=== PATIENT | female | born 1940 | race Caucasian/White ===

== ENCOUNTER 2021-01-18 16:47 | Emergency (ER) | payer MEDICARE, OTHER, SELFPAY ==
--- NOTE | 2021-01-18 16:51 | XRR_ITS ---
PROCEDURE INFORMATION: Exam: XR Right Shoulder Exam date and time: 01/18/2021 5:22 PM Age: 80 years old Clinical indication: Injury or trauma; Fall; Blunt trauma (contusions or hematomas); Shoulder; Right; Injury date: 01/18/2021 TECHNIQUE: Imaging protocol: XR Right shoulder. Views: 2 or more views. COMPARISON: No relevant prior studies available. FINDINGS: Tubes, catheters and devices: Partial visualization of left chest ICD. Bones/joints: Impacted acute fracture of the greater tuberosity. Glenohumeral alignment is unremarkable. Acromioclavicular alignment is unremarkable. Hypertrophic osseous spurring of distal clavicle and acromion process. Cortical irregularity of inferior glenoid and inferior humeral head. Diffuse osseous demineralization. Soft tissues: Unremarkable. XR/XR shoulder RT min 2V* [id number] IMPRESSION: Acute comminuted impacted right proximal humerus greater tuberosity fracture.
[2021-01-18 16:54] VITALS: PULSE 97; RESP 20; TEMP 36.8; O2SAT 98; BMI 34.3
[2021-01-18 17:00] VITALS: BP 119/93; PULSE 93; RESP 16; O2SAT 99
--- NOTE | 2021-01-18 17:09 | W.ED.FALL ---
HPI - Fall General: Chief Complaint: Fall Stated Complaint: R SHOULDER PAIN POST FALL Time Seen by Provider: 01/18/21 17:08 History of Present Illness: HPI Narrative: Patient is an 80-year-old female comes to the ED via EMS with right shoulder pain. Patient says that just prior to arrival she was going outside of her house to grab a package. She says the glass storm door blew open and knocked her back off the front porch. Patient says she fell on her back right side of the right shoulder. She denies any head trauma, neck pain or loss of consciousness. She says all of her pain is located in the back of the right shoulder region. She rates it a 10 out of 10. She says any movement with her arm causes pain up in her shoulder. Associated symptoms-after fall: Denies abdominal pain, chest pain, headache(s), hematuria or neck pain Review of Systems Const: Denies: fever(s), chills or fatigue Eyes: Denies: change in vision or eye discomfort ENMT: Denies: throat pain, odynophagia, nasal discharge or nasal congestion Card: Denies: chest pain, palpitations, edema, swelling of feet/ankles, dyspnea on exertion or orthopnea Resp: Denies: dyspnea, productive cough or non-productive cough GI: Denies: abdominal pain, nausea, vomiting, diarrhea, constipation or hematochezia : Denies: flank pain, dysuria or hematuria Musc: Reports: extremity pain (right shoulder) and limited range of motion (right arm); Denies: neck pain, back pain or extremity swelling Skin/Breast: Denies: rash or new lesions Neuro: Denies: headache(s), numbness in extremities or weakness in extremities PFSH ED PFSH: Medical History CHF (congestive heart failure) CKD (chronic kidney disease) stage 4, GFR 15-29 ml/min Coronary artery disease Diabetes mellitus HTN (hypertension) Hyperlipidemia Pacemaker Surgical History S/P hemorrhoidectomy S/P hysterectomy S/P lens implant Family History Father Cancer Colon CA Sister Cancer Breast CA Other CAD (coronary artery disease) Diabetes Gout Hypertension Social History Smoking and tobacco status: former smoker History of recent travel: No Physical Exam Const: COMMON NORMALS: no acute distress, patient oriented x3 and alert GENERAL APPEARANCE: cooperative and comfortable HENMT: COMMON NORMALS: normocephalic HEAD & SCALP: normocephalic MOUTH: Normal oral and palatal mucosa present THROAT: posterior oropharynx normal and uvula midline Neck/C-Spine: COMMON NORMALS: supple GENERAL: Yes normal visual inspection Resp: COMMON NORMALS: normal respiratory effort, No retractions, No use of accessory muscles and clear to auscultation bilaterally AUSCULTATION: clear to auscultation bilaterally Cardio: COMMON NORMALS: regular rate, regular rhythm, S1 normal heart sound present, S2 normal heart sound present, No gallops present (Cardio), No clicks present (Cardio), No murmurs present (Cardio) and Peripheral pulses 2+ throughout RATE: regular rate RHYTHM: regular rhythm HEART SOUNDS: S1 normal heart sound present and S2 normal heart sound present PERIPHERAL PULSES: Peripheral pulses 2+ throughout GI: COMMON NORMALS: Normal to inspection, nondistended, normoactive bowel sounds present, Soft to palpation, non-tender and no masses PALPATION: Yes Soft to palpation : COMMON NORMALS: Yes no CVA tenderness BLADDER/KIDNEY EXAM: Yes no CVA tenderness Back/Pelvis: COMMON NORMALS: no CVA tenderness Extremity: COMMON NORMALS: capillary refill normal GENERAL: Yes normal exam except as noted RIGHT UPPER EXTREMITY: Yes shoulder joint (Patient tender around proximal humeral head right shoulder.) Right shoulder: Yes Right shoulder joint inspection exam (No ecchymosis or visible deformity seen.), Yes palpation, Yes Right shoulder joint ROM exam (Limited due to pain) and Yes Right shoulder joint neurovascular exam (Intact) Neuro: COMMON NORMALS: patient oriented x3 and moves all extremities SENSORIUM/ORIENTATION: Yes alert Skin: GENERAL SKIN EXAM: dry skin Course Vital Signs: Vital signs: Vital Signs Temperature 98.3 F 01/18/21 16:54 Pulse Rate 93 01/18/21 17:00 Respiratory Rate 16 01/18/21 17:00 Blood Pressure 119/93 01/18/21 17:00 Pulse Oximetry 99 01/18/21 17:00 MDM - Fall MDM Narrative: Medical decision making narrative: Patient is an 80-year-old female comes to the ED with right shoulder pain after fall. Exam findings show pain at the proximal head of the humerus upon palpation. Neurovascular tact distally. X-ray of right shoulder show a comminuted impacted right proximal humerus greater tuberosity fracture. Patient was put in a shoulder immobilizer that I placed an order with case management for patient be referred to orthopedic doctor. She was told to rest and to wear shoulder immobilizer and limit any activity with her right arm. She was discharged home with a written prescription for [place]. Return to ED precautions given. I told patient that upper caser only contacting them in the next several days set up an appoint with orthopedic doctor. Patient understood agree with plan. Imaging Data^: Xray Ortho: Attestation: I personally reviewed and interpreted this imaging study as follows: Radiologist's impression: [facility] [place] [address] XRay Report Signed Patient: Ольга Hickey Unit #: [id number] : 1940 Age/Sex: 80 / F ADM Date: 01/18/21 Loc: ER Room/Bed: Attending Dr: Ordering Provider/Ordering MD: Skylar Millan Date of Service: 01/18/21 Procedure(s): XR shoulder RT min 2V* [id number] Accession Number(s): [id number] Report Number: [id number] PROCEDURE INFORMATION: Exam: XR Right Shoulder Exam date and time: 01/18/2021 5:22 PM Age: 80 years old Clinical indication: Injury or trauma; Fall; Blunt trauma (contusions or hematomas); Shoulder; Right; Injury date: 01/18/2021 TECHNIQUE: Imaging protocol: XR Right shoulder. Views: 2 or more views. COMPARISON: No relevant prior studies available. FINDINGS: Tubes, catheters and devices: Partial visualization of left chest ICD. Bones/joints: Impacted acute fracture of the greater tuberosity. Glenohumeral alignment is unremarkable. Acromioclavicular alignment is unremarkable. Hypertrophic osseous spurring of distal clavicle and acromion process. Cortical irregularity of inferior glenoid and inferior humeral head. Diffuse osseous demineralization. Soft tissues: Unremarkable. XR/XR shoulder RT min 2V* [id number] IMPRESSION: Acute comminuted impacted right proximal humerus greater tuberosity fracture. Dictated By: Tarik Ham Signed By: Tarik Ham Signed Date/Time: 01/18/211823 DD/ 22 Discharge Plan Discharge Patient Disposition: Home Clinical Impression: Fracture of greater tuberosity of right humerus Qualifiers: Encounter type: initial encounter Fracture type: closed Fracture alignment: nondisplaced Qualified Code(s): S42.254A - Nondisplaced fracture of greater tuberosity of right humerus, initial encounter for closed fracture Condition: Stable Prescriptions: No Action cholecalciferol (vitamin D3) 25 mcg (1,000 unit) capsule 1,000 unit PO DAILY@0800 RF: 0 nateglinide 120 mg tablet 120 mg PO TID@08,,20 RF: 0 levothyroxine 25 mcg capsule 25 mcg PO DAILY@0800 RF: 0 allopurinol 100 mg tablet 100 mg PO DAILY@0800 RF: 0 warfarin 1 mg tablet See Rx Instructions .ROUTE .COMPLEX RF: 0 Levemir FlexTouch U-100 Insuln 100 unit/mL (3 mL) insulin pen 30 unit SUBCUT BEDTIME@1999 RF: 0 losartan 50 mg tablet 50 mg PO DAILY@0800 RF: 0 Cartia XT 240 mg capsule,extended release 24hr 240 mg PO DAILY@0800 RF: 0 metoprolol tartrate 25 mg tablet 25 mg PO BID@0800,1999 RF: 0 fenofibrate nanocrystallized 145 mg tablet 145 mg PO DAILY@0800 RF: 0 Discharge Orders: Discharge ED (Routine); Ordered 01/18/21 Ordered By: Sravan Wright Referrals: Ángel Flores DO [Primary Care Provider] - Discharge Diet: Regular Discharge Activity: Limit activity as instructed Patient Instructions: Fractures - Humerus, Arm Fracture in Adults (ED), Opioid Safety Activity Restrictions/Additional Instructions: Follow-up with medical provider as directed. Case management should be contacting you in the next several days to set up an appointment with orthopedic doctor for further evaluation. Wear shoulder immobilizer and limit any activity with right arm. Take medications as prescribed. Return to the ER or your medical provider if condition worsens. Please read and understand discharge instructions. Thank you for choosing [facility] for your healthcare needs today. Please realize this is an emergency room and that we are providing you with a medical screening exam and this may not be complete and all inclusive of all the testing and or work up that you may need to determine your ailment or severity of your illness. It is very important that you follow up as instructed or that you return to the Emergency Department should you have concerns or if your condition changes or worsens in any way. Coding Level of Care Code ED Pharmacy Service Associate for Mirella Fwd Exam Comprehensive
[2021-01-18] MEDS: HYDROcodone-acetaminophen 5-325 mg Tablet 1 TAB PO (17:39)
--- NOTE | 2021-01-22 10:20 | DCPLANNER ---
general sales manager had message to schedule a follow up appointment for patient with ortho. general sales manager called the ortho clinic, spoke with Iona, gave clinic patients information. general sales manager was told that patients information would be printed and reviewed. Clinic will call patient with appointment information.
--- NOTE | 2021-01-24 07:50 | DCPLANNER ---
Patient had a follow up appointment scheduled for 01.23.[address] Cummings at [facility] - patient did attend appointment.
== END 2021-01-18 18:56 | disposition home or self-care (01) ==
PROVIDERS: Emergency Provider Physician Assistant; PCP Family Medicine
DX: S42.254A Nondisplaced fracture of greater tuberosity of right humerus, initial encounter for closed fracture (principal); Z79.01 Long term (current) use of anticoagulants; Z79.4 Long term (current) use of insulin; I13.0 Hypertensive heart and chronic kidney disease with heart failure and stage 1 through stage 4 chronic kidney disease, or unspecified chronic kidney disease; N18.4 Chronic kidney disease, stage 4 (severe); I50.9 Heart failure, unspecified; I25.10 Atherosclerotic heart disease of native coronary artery without angina pectoris; E78.5 Hyperlipidemia, unspecified; Z95.0 Presence of cardiac pacemaker; Z87.891 Personal history of nicotine dependence; W17.89XA Other fall from one level to another, initial encounter
CPT/HCPCS: 73030; 99283

== ENCOUNTER → 2021-02-13 13:00 | Outpatient (BNVA) | payer MEDICARE, OTHER, SELFPAY | PROVIDERS: PCP Family Medicine; Visit Provider Orthopaedic Surgery | DX: S42.254A Nondisplaced fracture of greater tuberosity of right humerus, initial encounter for closed fracture (principal); X58.XXXA Exposure to other specified factors, initial encounter | CPT/HCPCS: 73030 ==

== ENCOUNTER → 2021-03-27 08:51 | Outpatient (BNVA) | payer MEDICARE, OTHER, SELFPAY | PROVIDERS: PCP Family Medicine; Visit Provider Orthopaedic Surgery | DX: S42.254A Nondisplaced fracture of greater tuberosity of right humerus, initial encounter for closed fracture (principal); X58.XXXA Exposure to other specified factors, initial encounter | CPT/HCPCS: 73030 ==

== ENCOUNTER 2021-04-11 06:00 | Outpatient (RCR) | payer MEDICARE, OTHER, SELFPAY | END 2021-04-14 23:59 | disposition home or self-care (01) | LOC: SPT 06:00 | PROVIDERS: PCP Family Medicine; Referring Provider Orthopaedic Surgery; Visit Provider Orthopaedic Surgery | DX: S42.201D Unspecified fracture of upper end of right humerus, subsequent encounter for fracture with routine healing (principal); X58.XXXD Exposure to other specified factors, subsequent encounter | CPT/HCPCS: 97110; 97162 ==

== ENCOUNTER 2021-04-15 06:00 | Outpatient (RCR) | payer MEDICARE, OTHER, SELFPAY | END 2021-05-15 23:59 | disposition home or self-care (01) | LOC: SPT 06:00 | PROVIDERS: PCP Family Medicine; Referring Provider Orthopaedic Surgery; Visit Provider Orthopaedic Surgery | DX: S42.201D Unspecified fracture of upper end of right humerus, subsequent encounter for fracture with routine healing (principal); X58.XXXD Exposure to other specified factors, subsequent encounter | CPT/HCPCS: 97110 ==

== ENCOUNTER → 2021-05-04 10:20 | Outpatient (BNVA) | payer MEDICARE, OTHER, SELFPAY | PROVIDERS: PCP Family Medicine; Visit Provider Orthopaedic Surgery | DX: S42.251D Displaced fracture of greater tuberosity of right humerus, subsequent encounter for fracture with routine healing (principal); X58.XXXD Exposure to other specified factors, subsequent encounter | CPT/HCPCS: 73030 ==

== ENCOUNTER 2021-05-16 06:00 | Outpatient (RCR) | payer MEDICARE, OTHER, SELFPAY | END 2021-06-14 23:59 | disposition home or self-care (01) | LOC: SPT 06:00 | PROVIDERS: PCP Family Medicine; Referring Provider Orthopaedic Surgery; Visit Provider Orthopaedic Surgery | DX: S42.201D Unspecified fracture of upper end of right humerus, subsequent encounter for fracture with routine healing (principal); X58.XXXD Exposure to other specified factors, subsequent encounter | CPT/HCPCS: 97110; 97164 ==

== ENCOUNTER → 2021-11-16 11:03 | Outpatient (BNVA) | payer MEDICARE, OTHER, SELFPAY | PROVIDERS: PCP Family Medicine; Visit Provider Internal Medicine Cardiovascular Disease | DX: R07.9 Chest pain, unspecified (principal); I10 Essential (primary) hypertension; E66.01 Morbid (severe) obesity due to excess calories; Z68.44 Body mass index [BMI] 60.0-69.9, adult ==

== ENCOUNTER 2021-12-20 08:53 | Outpatient (CLI) | payer MEDICARE, OTHER, SELFPAY ==
[2021-12-20 09:37] LABS: Basophils # 0.1 10^3/uL (0.0-0.1); Basophils % 0.6 %; Eosinophils # 0.2 10^3/uL (0.0-0.8); Hematocrit 34.8 % (37.0-47.0); Hemoglobin 10.8 g/dL (11.5-15.3); Lymphocytes # 0.9 10^3/uL (0.8-4.8); Lymphocytes % 6.1 %; Mean Corpuscular Hemoglobin 30.3 pg (28.0-34.0); Mean Corpuscular Volume 97.8 fl (81-99); Mean Platelet Volume 11.2 fL (7.4-10.4); Monocytes # 1.4 10^3/uL (0.2-0.9); Monocytes % 8.8 %; Neutrophils # 12.76 10^3/uL (1.8-7.7); Nucleated Red Blood Cells % 0 %; Platelet Count 395 10^3/cmm (130-400); Red Blood Count 3.56 10^6/uL (4.1-5.3); White Blood Count 15.4 10^3/uL (4.0-10.0)
[2021-12-20 09:50] LABS: INR 2.97 (0.8-1.2)
[2021-12-20 10:00] LABS: Alanine Aminotransferase 12 U/L (0-33); Albumin Level 3.8 g/dL (3.5-5.2); Alkaline Phosphatase 74 IU/L (35-105); Anion Gap 14.8 (5-19); Aspartate Amino Transferase 16 U/L (0-32); Blood Urea Nitrogen 40 mg/dL (8-23); Calcium 9.6 mg/dL (8.5-10.5); Carbon Dioxide 24 mmol/L (22-29); Chloride 104 mmol/L (98-107); Creatine Phosphokinase 26 U/L (26-192); Globulin 2.8 g/dL (1.3-4.6); Glucose 190 mg/dL (65-115); Osmolality Calculated 301 mOsm/kg (285-295); Potassium 4.8 mmol/L (3.5-5.1); Sodium 138 mmol/L (136-145); Total Bilirubin 0.8 mg/dL (0.15-1.2); Total Protein 6.6 g/dL (6.6-8.7)
== END 2021-12-20 08:54 | disposition home or self-care (01) ==
LOC: LAB 08:59
PROVIDERS: PCP Family Medicine; Visit Provider Family Medicine
DX: Z79.01 Long term (current) use of anticoagulants (principal); N19 Unspecified kidney failure; W19.XXXA Unspecified fall, initial encounter; R58 Hemorrhage, not elsewhere classified
CPT/HCPCS: 80053; 82550; 85025; 85610

== ENCOUNTER → 2022-03-14 14:56 | Outpatient (BNVA) | payer MEDICARE, OTHER, SELFPAY | PROVIDERS: PCP Family Medicine; Visit Provider Internal Medicine Cardiovascular Disease | DX: I25.10 Atherosclerotic heart disease of native coronary artery without angina pectoris (principal); I13.0 Hypertensive heart and chronic kidney disease with heart failure and stage 1 through stage 4 chronic kidney disease, or unspecified chronic kidney disease; E11.22 Type 2 diabetes mellitus with diabetic chronic kidney disease; N18.4 Chronic kidney disease, stage 4 (severe); I50.32 Chronic diastolic (congestive) heart failure; Z99.2 Dependence on renal dialysis; Z87.891 Personal history of nicotine dependence; Z79.4 Long term (current) use of insulin; Z95.0 Presence of cardiac pacemaker | CPT/HCPCS: 99214 ==

== ENCOUNTER → 2022-03-29 10:08 | Outpatient (BNVA) | payer MEDICARE, SELFPAY | PROVIDERS: PCP Family Medicine; Visit Provider Internal Medicine Cardiovascular Disease | DX: Z45.010 Encounter for checking and testing of cardiac pacemaker pulse generator [battery] (principal) | CPT/HCPCS: 93279 ==

== ENCOUNTER → 2022-04-02 09:01 | Outpatient (BNVA) | payer MEDICARE, OTHER, SELFPAY | PROVIDERS: PCP Family Medicine; Visit Provider Family Medicine | DX: Z79.01 Long term (current) use of anticoagulants (principal); R23.3 Spontaneous ecchymoses; N18.9 Chronic kidney disease, unspecified | CPT/HCPCS: 80069; 82043; 82306; 82310; 83550; 83970; 85025; 85610 ==

== ENCOUNTER → 2022-07-09 09:37 | Outpatient (BNVA) | payer MEDICARE, OTHER, SELFPAY | PROVIDERS: PCP Family Medicine; Visit Provider Family Medicine | DX: E11.9 Type 2 diabetes mellitus without complications (principal); I10 Essential (primary) hypertension; Z79.01 Long term (current) use of anticoagulants | CPT/HCPCS: 83036; 85610 ==

== ENCOUNTER 2022-07-28 13:20 | Emergency (ER) | payer MEDICARE, OTHER, SELFPAY ==
[2022-07-28 13:50] VITALS: BP 135/83; PULSE 95; RESP 18; TEMP 36.3; O2SAT 97
--- NOTE | 2022-07-28 14:17 | XRR_ITS ---
PROCEDURE INFORMATION: Exam: XR Abdomen Exam date and time: 07/28/2022 4:35 PM Age: 81 years old Clinical indication: Abdominal pain; Additional info: Abd pain, HX of pneumonia TECHNIQUE: Imaging protocol: Radiologic exam of the abdomen. Views: 2 Views. Upright and supine views. COMPARISON: CR XR chest 1V [id number] 09/12/2015 11:56 AM FINDINGS: Tubes, catheters and devices: Pacemaker stable. Heart/Mediastinum: Cardiomegaly is stable. Gastrointestinal tract: Normal. No bowel dilation. Intraperitoneal space: Normal. No free air. Bones/joints: Unremarkable for age. XR/XR acute abdomen series [id number] IMPRESSION: No acute findings.
[2022-07-28 15:31] LABS: Basophils % 0.1 %; Hematocrit 37.5 % (37.0-47.0); Hemoglobin 11.4 g/dL (11.5-15.3); Lymphocytes # 0.8 10^3/uL (0.8-4.8); Lymphocytes % 6.8 %; Mean Corpuscular HGB Conc 30.4 g/dL (30.0-36.0); Mean Corpuscular Hemoglobin 31.3 pg (28.0-34.0); Mean Platelet Volume 9.7 fL (7.4-10.4); Monocytes # 0.3 10^3/uL (0.2-0.9); Monocytes % 2.2 %; Neutrophils # 10.56 10^3/uL (1.8-7.7); Neutrophils % 89.4 %; Nucleated Red Blood Cells % 0 %; Platelet Count 468 10^3/cmm (130-400); Red Blood Count 3.64 10^6/uL (4.1-5.3); Red Cell Distribution Width 13.4 % (12.1-15.1); White Blood Count 11.8 10^3/uL (4.0-10.0)
--- NOTE | 2022-07-28 15:36 | W.ED.GENADLT ---
HPI - General Adult General: Chief complaint: General Medical Stated complaint: SOB Time Seen by Provider: 07/28/22 14:59 Source: patient Mode of arrival: ambulatory History of Present Illness: 81-year-old female presents emergency room with complaints of shortness of breath and abdominal pain. She has been coughing for the several days she seen her primary care doctor 4 days ago and was started on Levaquin for presumed pneumonia. She is continued to cough since then and has a pain in her abdomen she describes a sensation of an severe pain with cough or deep breath in the abdominal wall to the left of the umbilicus. She has a palpable knot there as well she states she had subjectively had a fever but that has improved. She does not smoke. She has a history of diabetes mellitus, chronic kidney disease and congestive heart failure. She has no known history of any chronic respiratory illness no recent chest pain. Onset (ago): day(s) Location: abdomen Severity: moderate Quality: stabbing and sharp Pain Consistency: intermittent Exacerbating factors: movement and other (Palpation) Associated symptoms: Reports cough; Deny chest pain, confusion, diaphoresis, decreased appetite, dyspnea, fevers/chills, headache(s), malaise, nausea, rash, palpitations, seizures, short of breath, syncope, vomiting or weakness Treatments prior to arrival: none Review of Systems Const: Denies: fever(s), chills, fatigue, malaise or diaphoresis ENMT: Denies: throat pain, ear or mastoid pain, nasal discharge or nasal congestion Card: Denies: chest pain, palpitations or syncope Resp: Denies: dyspnea GI: Reports: abdominal pain; Denies: nausea, vomiting, diarrhea or constipation : Denies: flank pain, difficulty voiding, dysuria, urinary frequency or urinary urgency Musc: Denies: neck pain or back pain Skin/Breast: Denies: rash Neuro: Denies: headache(s) or confusion PFSH ED PFSH: Medical History CHF (congestive heart failure) CKD (chronic kidney disease) stage 4, GFR 15-29 ml/min Coronary artery disease Diabetes mellitus HTN (hypertension) Hyperlipidemia Pacemaker Surgical History S/P hemorrhoidectomy S/P hysterectomy S/P lens implant Family History Father Cancer Colon CA Sister Cancer Breast CA Other CAD (coronary artery disease) Diabetes Gout Hypertension Social History Smoking and tobacco status: former smoker History of recent travel: No Physical Exam Const: COMMON NORMALS: no acute distress GENERAL APPEARANCE: cooperative and comfortable ORIENTATION/CONSCIOUSNESS: Yes awake, Yes oriented to person, Yes oriented to place and Yes oriented to time HENMT: COMMON NORMALS: normocephalic, atraumatic and hearing grossly normal bilaterally HEAD & SCALP: normocephalic and atraumatic Resp: COMMON NORMALS: normal respiratory effort, No retractions, No use of accessory muscles and clear to auscultation bilaterally AUSCULTATION: clear to auscultation bilaterally Cardio: COMMON NORMALS: regular rate, regular rhythm and No murmurs present (Cardio) RATE: regular rate RHYTHM: regular rhythm GI: COMMON NORMALS: Soft to palpation and No hepatosplenomegaly present AUSCULTATION: Yes normoactive bowel sounds PALPATION: Yes Soft to palpation, No Tenderness to palpation present (GI), No Guarding due to palpation present (GI) and Yes No hepatosplenomegaly present OTHER: Ecchymosis of the abdominal wall to the right of the umbilicus. Palpable exquisitely tender nodule in that area appears to be abdominal wall hematoma. Extremity: COMMON NORMALS: normal to inspection, capillary refill normal, no clubbing, cyanosis or edema, no calf tenderness and no pedal edema Neuro: SENSORIUM/ORIENTATION: Yes oriented to person, Yes oriented to place and Yes oriented to time Skin: COMMON NORMALS: no rashes or lesions noted GENERAL SKIN EXAM: no rashes or lesions noted Course Vital Signs: Vital signs: Vital Signs Temperature 97.4 F L 07/28/22 18:43 Pulse Rate 71 07/28/22 18:43 Respiratory Rate 16 07/28/22 18:43 Blood Pressure 142/71 07/28/22 18:43 Pulse Oximetry 97 07/28/22 18:43 Oxygen Delivery Me thod 07/28/22 13:50 [facility] - General Adult Medical Decision Making Patient notes abdominal wall hematoma. Mildly over anticoagulated additionally has mild acute on chronic kidney injury. Will discharge home with hydrocodone follow-up with primary care next week return if is further problems. Medical Records I reviewed the patient's medical records. Lab Data I reviewed the patient's lab results. 07/28/22 15:20 07/28/22 15:20 Radiology Impressions Chest/Abdomen X-ray 07/28/22 14:17 IMPRESSION: No acute findings. Abdomen/Pelvis CT 07/28/22 15:49 IMPRESSION: Right rectus abdominus hematoma. COMMENTS: Consistent with the [employer]'s Incidental Findings Committee white paper (J Am Derick Radiol 2018): Any incidental renal lesion less than 1 cm or classified as too small to characterize, or any incidental cystic renal lesion characterized as simple-appearing, is likely benign. No follow-up imaging is recommended for these lesions per consensus recommendations based on imaging criteria. Laboratory Results WBC 11.8 10^3/uL (4.0-10.0) H 07/28/22 15:20 RBC 3.64 10^6/uL (4.1-5.3) L 07/28/22 15:20 Hgb 11.4 g/dL (11.5-15.3) L 07/28/22 15:20 Hct 37.5 % (37.0-47.0) 07/28/22 15:20 MCV 103.0 fl (81-99) H 07/28/22 15:20 MCH 31.3 pg (28.0-34.0) 07/28/22 15:20 MCHC 30.4 g/dL (30.0-36.0) 07/28/22 15:20 RDW 13.4 % (12.1-15.1) 07/28/22 15:20 Plt Count 468 10^3/cmm (130-400) H 07/28/22 15:20 MPV 9.7 fL (7.4-10.4) 07/28/22 15:20 Neut % (Auto) 89.4 % 07/28/22 15:20 Lymph % (Auto) 6.8 % 07/28/22 15:20 [place] % (Auto) 2.2 % 07/28/22 15:20 Eos % (Auto) 0.0 % 07/28/22 15:20 Baso % (Auto) 0.1 % 07/28/22 15:20 Neut # (Auto) 10.56 10^3/uL (1.8-7.7) H 07/28/22 15:20 Lymph # (Auto) 0.8 10^3/uL (0.8-4.8) 07/28/22 15:20 [place] # (Auto) 0.3 10^3/uL (0.2-0.9) 07/28/22 15:20 Eos # (Auto) 0.0 10^3/uL (0.0-0.8) 07/28/22 15:20 Baso # (Auto) 0.0 10^3/uL (0.0-0.1) 07/28/22 15:20 Nucleated RBC % (auto) 0 % 07/28/22 15:20 Nucleated RBCs # 0.0 /100WBC 07/28/22 15:20 PT 42.70 SECONDS (12.1-14.9) H 07/28/22 15:20 INR 4.47 (0.8-1.2) H 07/28/22 15:20 Sodium 128 mmol/L (136-145) L 07/28/22 15:20 Potassium 5.4 mmol/L (3.5-5.1) H 07/28/22 15:20 Chloride 97 mmol/L (98-107) L 07/28/22 15:20 Carbon Dioxide 21 mmol/L (22-29) L 07/28/22 15:20 Anion Gap 15.4 (5-19) 07/28/22 15:20 BUN 47 mg/dL (8-23) H 07/28/22 15:20 Creatinine 2.0 mg/dL (0.5-0.9) H 07/28/22 15:20 GFR Calculation Not Reportable 07/28/22 15:20 Glucose 451 mg/dL (65-115) H 07/28/22 15:20 Calculated Osmolality 298 mOsm/kg (285-295) H 07/28/22 15:20 Calcium 9.5 mg/dL (8.5-10.5) 07/28/22 15:20 Total Bilirubin 0.3 mg/dL (0.15-1.2) 07/28/22 15:20 AST 20 U/L (0-32) 07/28/22 15:20 ALT 19 U/L (0-33) 07/28/22 15:20 Alkaline Phosphatase 77 U/L (35-105) 07/28/22 15:20 Troponin T Baseline 14 ng/L (0-10) H 07/28/22 15:20 Troponin T 120 Minute 11.74 ng/L (0-10) H 07/28/22 17:17 Delta Troponin T -2.26 ABS# (0-10) L 07/28/22 17:17 Total Protein 7.0 g/dL (6.6-8.7) 07/28/22 15:20 Albumin 3.3 g/dL (3.5-5.2) L 07/28/22 15:20 Globulin 3.7 g/dL (1.3-4.6) 07/28/22 15:20 Lipase 101 U/L (13-60) H 07/28/22 15:20 Urine Color Straw (Yellow) 07/28/22 16:55 Urine Appearance Clear (CLEAR) 07/28/22 16:55 Urine pH 5 (5-7) 07/28/22 16:55 Ur Specific [place] 1.015 (1.005-1.030) 07/28/22 16:55 Urine Protein Neg (Negative) 07/28/22 16:55 Urine Glucose (UA) 4+ (Normal) H 07/28/22 16:55 Urine Ketones Negative (Negative) 07/28/22 16:55 Urine Blood Neg (Negative) 07/28/22 16:55 Urine Nitrate Negative (Negative) 07/28/22 16:55 Urine Bilirubin Neg (Negative) 07/28/22 16:55 Urine Urobilinogen Norm mg/dL (Negative) 07/28/22 16:55 Ur Leukocyte Esterase Trace (Negative) H 07/28/22 16:55 Urine RBC None /hpf (0-2) 07/28/22 16:55 Urine WBC 5-10 /hpf (0-5) H 07/28/22 16:55 Ur Squamous Epith Cells 0-4 /hpf (0-5) H 07/28/22 16:55 Amorphous Sediment Not Reportable 07/28/22 16:55 Urine Bacteria 1+ /hpf (NONE) H 07/28/22 16:55 Discharge Plan Discharge Patient Disposition: Home Clinical Impression: Abdominal wall hematoma, Hyperkalemia, Acute on chronic renal insufficiency, Over-anticoagulated, Cystitis Condition: Stable Prescriptions: New hydrocodone-acetaminophen 5-325 mg tablet 1 tab PO Q6H PRN (Reason: pain) Qty: 15 0RF No Action cholecalciferol (vitamin D3) 25 mcg (1,000 unit) capsule 1,000 unit PO DAILY@0800 nateglinide 120 mg tablet 120 mg PO TID@08,12,20 allopurinol 100 mg tablet 100 mg PO DAILY@0800 warfarin 1 mg tablet See Rx Instructions .ROUTE .COMPLEX Rx Instructions: TAKE 2 MG EVERY DAY EXCEPT FRIDAY. SKIP FRIDAY. valacyclovir 1 gram tablet 1,000 mg PO TID Qty: 21 0RF Rx Instructions: for shingles fluconazole 100 mg tablet 100 mg PO DAILY Qty: 5 0RF nystatin 100,000 unit/gram powder 1 applic topical BID Qty: 60 1RF levofloxacin 500 mg tablet 500 mg PO DAILY Qty: 10 0RF Rx Instructions: for lung infection prednisone 20 mg tablet 20 mg PO DAILY Qty: 10 0RF hydrocodone-acetaminophen 5-325 mg tablet 1 tab PO Q6H PRN (Reason: pain) 7 Days Qty: 15 0RF losartan 50 mg tablet 50 mg PO DAILY@0800 Qty: 90 3RF fenofibrate nanocrystallized 145 mg tablet 145 mg PO DAILY@0800 Qty: 90 3RF diltiazem HCl [Cartia XT] 240 mg capsule,extended release 24hr 240 mg PO DAILY@0800 Qty: 90 3RF levothyroxine 25 mcg capsule 25 mcg PO DAILY@0800 Qty: 90 1RF metoprolol tartrate 25 mg tablet 25 mg PO BID@0800,1999 Qty: 180 2RF albuterol sulfate 90 mcg/actuation HFA aerosol inhaler See Rx Instructions .ROUTE .COMPLEX Qty: 20.1 11RF Dose Instruction: INHALE 2 PUFFS BY MOUTH FOUR TIMES DAILY NEEDED FOR SHORTNESS OF BREATH OR WHEEZING Rx Instructions: INHALE 2 PUFFS BY MOUTH FOUR TIMES DAILY NEEDED FOR SHORTNESS OF BREATH OR WHEEZING Levemir FlexTouch U-100 Insuln 100 unit/mL (3 mL) insulin pen 30 unit SUBCUT BEDTIME@1999 Discharge Orders: Discharge ED (Routine); Ordered 07/28/22 Ordered By: Krzysztof Mcconnell Referrals: Ángel Flores, [Primary Care Provider] - Discharge Diet: Usual diet Discharge Activity: Increase activity as tolerated Patient Instructions: Opioid Safety, Pain Management Activity Restrictions/Additional Instructions: Follow-up with your primary care doctor's office within the next 2-3 days to have repeat basic metabolic profile and INR recheck. Hold Coumadin until your INR is rechecked and you receive further instructions from your physician. Coding Level of Care Code ED Manager Materials Management for Chg Fwd Exam Detailed
--- NOTE | 2022-07-28 15:37 | ECG_ITS ---
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 Measurements Intervals [place] Rate: 93 P: 0 TN: 0 QRS: -6 QRSD: 114 T: -86 QT: 350 QTc: 436 Interpretive Statements ATRIAL FIBRILLATION MODERATE INTRAVENTRICULAR CONDUCTION DELAY [110+ ms QRS DURATION] ST DEVIATION AND MODERATE T-WAVE ABNORMALITY, CONSIDER LATERAL ISCHEMIA [-0.1+ mV T-WAVE IN I/aVL/V5/V6] ST DEVIATION AND MODERATE T-WAVE ABNORMALITY, CONSIDER INFERIOR ISCHEMIA [-0.1+ mV T-WAVE IN II/aVF] Compared to ECG 09/12/2015 11:42:57 Intraventricular conduction delay now present T-wave abnormality still present Possible ischemia still present Electronically Signed On 07-28-2022 22:21:01 WRAPAROUND FACILITATOR by Niraj Dominguez M.D. [id number]
--- NOTE | 2022-07-28 15:49 | CTR_ITS ---
PROCEDURE INFORMATION: Exam: CT Abdomen And Pelvis Without Contrast Exam date and time: 07/28/2022 4:09 PM Age: 81 years old Clinical indication: Abdominal pain; Tenderness; Right lower quadrant (rlq); Additional info: Abdominal pain, abd wall hematoma TECHNIQUE: Imaging protocol: Computed tomography of the abdomen and pelvis without contrast. Radiation optimization: All CT scans at this facility use at least one of these dose optimization techniques: automated exposure control; mA and/or kV adjustment per patient size (includes targeted exams where dose is matched to clinical indication); or iterative reconstruction. COMPARISON: No relevant prior studies available. RADIATION DOSE METRICS: Total DLP (mGy-cm): 838.4 FINDINGS: Tubes, catheters and devices: Partially visualized pacemaker leads. Liver: Normal. No mass. Gallbladder and bile ducts: Normal. No calcified stones. No ductal dilation. Pancreas: Normal. No ductal dilation. Spleen: Normal. No splenomegaly. Adrenal glands: Normal. No mass. Kidneys and ureters: There is a 2.1 cm cyst with benign features in the right kidney. Stomach and bowel: There is diverticulosis of the colon without evidence of diverticulitis. Appendix: No evidence of appendicitis. Intraperitoneal space: Unremarkable. No free air. No significant fluid collection. Vasculature: There is scattered atherosclerotic plaque in the aorta and iliac arteries. Lymph nodes: Unremarkable. No enlarged lymph nodes. Urinary bladder: Unremarkable as visualized. Reproductive: The uterus is not visualized, consistent with hysterectomy. Bones/joints: Unremarkable. No acute fracture. Soft tissues: Heterogeneous density in the right rectus abdominus muscle is consistent with hematoma and measures 17.0 x 6.1 cm in the craniocaudad/AP dimensions. There is edema and/or hematoma in the adjacent subcutaneous soft tissues as well. CT/CT abdomen pelvis wo con [id number] IMPRESSION: Right rectus abdominus hematoma. COMMENTS: Consistent with the [employer]'s Incidental Findings Committee white paper (J Am Derick Radiol 2018): Any incidental renal lesion less than 1 cm or classified as too small to characterize, or any incidental cystic renal lesion characterized as simple-appearing, is likely benign. No follow-up imaging is recommended for these lesions per consensus recommendations based on imaging criteria.
[2022-07-28 15:52] LABS: Alanine Aminotransferase 19 U/L (0-33); Albumin Level 3.3 g/dL (3.5-5.2); Alkaline Phosphatase 77 U/L (35-105); Anion Gap 15.4 (5-19); Aspartate Amino Transferase 20 U/L (0-32); Blood Urea Nitrogen 47 mg/dL (8-23); Calcium 9.5 mg/dL (8.5-10.5); Carbon Dioxide 21 mmol/L (22-29); Chloride 97 mmol/L (98-107); Globulin 3.7 g/dL (1.3-4.6); Glucose 451 mg/dL (65-115); Lipase 101 U/L (13-60); Osmolality Calculated 298 mOsm/kg (285-295); Potassium 5.4 mmol/L (3.5-5.1); Sodium 128 mmol/L (136-145); Total Bilirubin 0.3 mg/dL (0.15-1.2)
[2022-07-28 16:14] LABS: Troponin(5th) Baseline 14 ng/L (0-10)
[2022-07-28 17:13] LABS: Add Urine Microscopic? YES; Bilirubin Urine Neg (Negative); Blood Urine Neg (Negative); Glucose Urine UA 4+ (Normal); Ketones Urine Negative (Negative); Leukocyte Esterase Urine Trace (Negative); Nitrate Urine Negative (Negative); Protein Urine Neg (Negative); Specific Gravity, Urine 1.015 (1.005-1.030); Urine Appearance Clear (CLEAR); Urine Color Straw (Yellow); Urobilinogen Urine Norm (Negative); pH Urine 5 (5-7)
[2022-07-28 17:15] LABS: Squamous Epithelial Cell Urine 0-4 /hpf (0-5)
[2022-07-28 17:16] LABS: Add Urine Culture? No; Bacteria Urine 1+ /hpf
[2022-07-28 17:17] VITALS: RESP 16
[2022-07-28] MEDS: morphine 4 mg/mL SDV 1 mL IVP (17:17)
[2022-07-28] MEDS: sodium chloride 0.9% 1,000 ML 999 ML IV (17:17)
[2022-07-28 17:36] VITALS: BP 144/76; PULSE 74; RESP 18; O2SAT 97
[2022-07-28 17:38] LABS: INR 4.47 (0.8-1.2)
[2022-07-28 17:49] LABS: Troponin 5 2HR 11.74 ng/L (0-10)
[2022-07-28 17:58] LABS: Troponin 5 2HR Delta -2.26 ABS# (0-10)
[2022-07-28 18:30] VITALS: BP 142/71; PULSE 71; RESP 16
[2022-07-28 18:43] VITALS: BP 142/71; PULSE 71; RESP 16; TEMP 36.3; O2SAT 97
== END 2022-07-28 18:48 | disposition home or self-care (01) ==
PROVIDERS: Nurse Practitioner Family; Emergency Provider Family Medicine; PCP Family Medicine
DX: E87.5 Hyperkalemia (principal); N18.9 Chronic kidney disease, unspecified; N30.90 Cystitis, unspecified without hematuria; Z79.01 Long term (current) use of anticoagulants; S30.1XXA Contusion of abdominal wall, initial encounter; X58.XXXA Exposure to other specified factors, initial encounter
CPT/HCPCS: 36415; 74022; 74176; 80053; 81001; 83690; 84484; 85025; 85610; 93005; 96374; 99285; J2270; J7030

== ENCOUNTER → 2022-07-30 09:25 | Outpatient (BNVA) | payer MEDICARE, OTHER, SELFPAY | PROVIDERS: PCP Family Medicine; Visit Provider Family Medicine | DX: S30.1XXA Contusion of abdominal wall, initial encounter (principal); E87.5 Hyperkalemia; N18.9 Chronic kidney disease, unspecified; I48.91 Unspecified atrial fibrillation; Z79.01 Long term (current) use of anticoagulants; I25.10 Atherosclerotic heart disease of native coronary artery without angina pectoris | CPT/HCPCS: 80048 ==

== ENCOUNTER → 2022-09-20 11:26 | Outpatient (BNVA) | payer MEDICARE, OTHER, SELFPAY | PROVIDERS: PCP Family Medicine; Visit Provider Internal Medicine Cardiovascular Disease | DX: I48.91 Unspecified atrial fibrillation (principal); I13.0 Hypertensive heart and chronic kidney disease with heart failure and stage 1 through stage 4 chronic kidney disease, or unspecified chronic kidney disease; I50.32 Chronic diastolic (congestive) heart failure; I25.10 Atherosclerotic heart disease of native coronary artery without angina pectoris; E11.22 Type 2 diabetes mellitus with diabetic chronic kidney disease; N18.4 Chronic kidney disease, stage 4 (severe); Z95.0 Presence of cardiac pacemaker; Z79.01 Long term (current) use of anticoagulants; Z87.891 Personal history of nicotine dependence; Z79.4 Long term (current) use of insulin | CPT/HCPCS: 85610; 93279; 99214; Q3014 ==

== ENCOUNTER → 2022-09-26 10:12 | Outpatient (BNVA) | payer MEDICARE, OTHER, SELFPAY | PROVIDERS: PCP Family Medicine; Visit Provider Internal Medicine | DX: I48.91 Unspecified atrial fibrillation (principal) | CPT/HCPCS: 85610 ==

== ENCOUNTER → 2022-10-03 10:11 | Outpatient (BNVA) | payer MEDICARE, OTHER, SELFPAY | PROVIDERS: PCP Family Medicine; Visit Provider Internal Medicine Cardiovascular Disease | DX: I48.91 Unspecified atrial fibrillation (principal) | CPT/HCPCS: 85610 ==

== ENCOUNTER → 2022-10-17 09:52 | Outpatient (BNVA) | payer MEDICARE, OTHER, SELFPAY | PROVIDERS: PCP Family Medicine; Visit Provider Internal Medicine Cardiovascular Disease | DX: I48.91 Unspecified atrial fibrillation (principal); N18.4 Chronic kidney disease, stage 4 (severe); D63.1 Anemia in chronic kidney disease | CPT/HCPCS: 80069; 82043; 82306; 82310; 83970; 85025; 85610 ==

== ENCOUNTER → 2022-10-24 10:10 | Outpatient (BNVA) | payer MEDICARE, OTHER, SELFPAY | PROVIDERS: PCP Family Medicine; Visit Provider Internal Medicine Cardiovascular Disease | DX: I48.91 Unspecified atrial fibrillation (principal) | CPT/HCPCS: 85610 ==

== ENCOUNTER → 2022-10-31 11:23 | Outpatient (BNVA) | payer MEDICARE, OTHER, SELFPAY | PROVIDERS: PCP Family Medicine; Visit Provider Internal Medicine Cardiovascular Disease | DX: I48.91 Unspecified atrial fibrillation (principal) | CPT/HCPCS: 85610 ==

== ENCOUNTER → 2022-11-07 09:59 | Outpatient (BNVA) | payer MEDICARE, OTHER, SELFPAY | PROVIDERS: PCP Family Medicine; Visit Provider Internal Medicine Cardiovascular Disease | DX: I48.91 Unspecified atrial fibrillation (principal) | CPT/HCPCS: 85610 ==

== ENCOUNTER → 2022-11-14 10:03 | Outpatient (BNVA) | payer MEDICARE, OTHER, SELFPAY | PROVIDERS: PCP Family Medicine; Visit Provider Internal Medicine Cardiovascular Disease | DX: I48.91 Unspecified atrial fibrillation (principal) | CPT/HCPCS: 85610 ==

== ENCOUNTER → 2022-11-21 09:47 | Outpatient (BNVA) | payer MEDICARE, OTHER, SELFPAY | PROVIDERS: PCP Family Medicine; Visit Provider Internal Medicine Cardiovascular Disease | DX: I48.91 Unspecified atrial fibrillation (principal) | CPT/HCPCS: 85610 ==

== ENCOUNTER → 2022-12-19 09:56 | Outpatient (BNVA) | payer MEDICARE, OTHER, SELFPAY | PROVIDERS: PCP Family Medicine; Visit Provider Internal Medicine Cardiovascular Disease | DX: I48.91 Unspecified atrial fibrillation (principal) | CPT/HCPCS: 85610 ==

== ENCOUNTER → 2023-01-16 10:24 | Outpatient (BNVA) | payer MEDICARE, OTHER, SELFPAY | PROVIDERS: PCP Family Medicine; Visit Provider Internal Medicine Cardiovascular Disease | DX: I48.91 Unspecified atrial fibrillation (principal) | CPT/HCPCS: 85610 ==

== ENCOUNTER → 2023-01-23 13:16 | Outpatient (BNVA) | payer MEDICARE, OTHER, SELFPAY | PROVIDERS: PCP Family Medicine; Visit Provider Family Medicine | DX: I48.91 Unspecified atrial fibrillation (principal); I25.10 Atherosclerotic heart disease of native coronary artery without angina pectoris; E11.22 Type 2 diabetes mellitus with diabetic chronic kidney disease; I13.0 Hypertensive heart and chronic kidney disease with heart failure and stage 1 through stage 4 chronic kidney disease, or unspecified chronic kidney disease; I50.9 Heart failure, unspecified; N18.4 Chronic kidney disease, stage 4 (severe); E78.5 Hyperlipidemia, unspecified | CPT/HCPCS: 80053; 80061; 82306; 82607; 83036; 84443; 85025 ==

== ENCOUNTER → 2023-02-13 10:02 | Outpatient (BNVA) | payer MEDICARE, OTHER, SELFPAY | PROVIDERS: PCP Family Medicine; Visit Provider Internal Medicine Cardiovascular Disease | DX: I48.91 Unspecified atrial fibrillation (principal) | CPT/HCPCS: 85610 ==

== ENCOUNTER → 2023-03-13 10:23 | Outpatient (BNVA) | payer MEDICARE, OTHER, SELFPAY | PROVIDERS: PCP Family Medicine; Visit Provider Internal Medicine Cardiovascular Disease | DX: I48.91 Unspecified atrial fibrillation (principal) | CPT/HCPCS: 85610 ==

== ENCOUNTER → 2023-04-10 10:00 | Outpatient (BNVA) | payer MEDICARE, OTHER, SELFPAY | PROVIDERS: PCP Family Medicine; Visit Provider Internal Medicine Cardiovascular Disease | DX: I48.91 Unspecified atrial fibrillation (principal) | CPT/HCPCS: 85610 ==

== ENCOUNTER → 2023-04-21 15:13 | Outpatient (BNVA) | payer MEDICARE, OTHER, SELFPAY | PROVIDERS: PCP Family Medicine; Visit Provider Internal Medicine Cardiovascular Disease | DX: I25.10 Atherosclerotic heart disease of native coronary artery without angina pectoris (principal); I13.0 Hypertensive heart and chronic kidney disease with heart failure and stage 1 through stage 4 chronic kidney disease, or unspecified chronic kidney disease; I50.32 Chronic diastolic (congestive) heart failure; N18.4 Chronic kidney disease, stage 4 (severe); E11.22 Type 2 diabetes mellitus with diabetic chronic kidney disease; Z95.0 Presence of cardiac pacemaker; I48.91 Unspecified atrial fibrillation; Z79.4 Long term (current) use of insulin; Z87.891 Personal history of nicotine dependence | CPT/HCPCS: 99214 ==

== ENCOUNTER 2023-04-30 09:19 | Outpatient (CLI) | payer MEDICARE, OTHER, SELFPAY ==
--- NOTE | 2023-04-30 09:30 | USCV_ITS ---
Ольга Hickey Age: 82 Gender: F : 1940 Exam Date: 04/30/2023 09:57 Ordering Phys: Lyndsey Uribe MD ([email or web address]) Technologist: Kaylan Holder [place] [facility] [place]: CAD BP: 136 / 80 HR: 95 Rhythm: Other Technical Quality: Adequate MEASUREMENTS (Male / Female) Normal Values 2D ECHO LV Diastolic Diameter PLAX 4.9 cm 4.2 - 5.9 / 3.9 - 5.3 cm LV Systolic Diameter PLAX 3.0 cm IVS Diastolic Thickness 1.2 cm 0.6 - 1.0 / 0.6 - 0.9 cm IVS Systolic Thickness 1.9 cm LVPW Diastolic Thickness 0.9 cm 0.6 - 1.0 / 0.6 - 0.9 cm LVPW Systolic Thickness 1.7 cm LVOT Diameter 2.0 cm LV Ejection Fraction 2D Teich 69.4 % LV Ejection Fraction MOD 2C 59.9 % LV Ejection Fraction 2C AL 61.2 % LA Diameter 4.7 cm LA Width 4.2 cm LA Height 5.9 cm RA Width 3.2 cm RA Height 2.9 cm Aorta at Sinotubular Diameter 2.9 cm IVC Diameter 1.6 cm M-MODE Aortic Annulus Diameter 3.4 cm LA Ao Ratio MM 1.4 MV E Point Septal Separation 0.6 cm DOPPLER AV Peak Velocity 100.0 cm/s LVOT Peak Velocity 64.0 cm/s AV Area Cont Eq vti 2.2 cm squared AV Area Cont Eq pk 2.1 cm squared MV Peak Velocity 123.0 cm/s MV Area PHT 4.5 cm squared Mitral E to A Ratio 7.4 MV E' Velocity 64.0 cm/s Mitral E to MV E' Ratio 10.5 Mitral E to LV E' Lateral Ratio 10.2 Mitral E to LV E' Septal Ratio 11.0 TR Peak Velocity 96.0 cm/s TR Peak Gradient 3.7 mmHg Right Atrial Pressure 5.0 mmHg Pulmonary Artery Systolic Pressu 8.7 mmHg PV Peak Velocity 103.0 cm/s RV Acceleration Time 0.1 s RV Ejection Time 0.3 s RV AcT/ET 0.5 FINDINGS Left Ventricle Normal left ventricular cavity size. Normal left ventricular systolic function. Left ventricular ejection fraction is estimated at 55 %. No diagnostic regional wall motion abnormalities. Abnormal septal motion consistent with pacemaker. Rhythm precludes evaluation of diastolic function. Right Ventricle Normal right ventricular size and systolic function. Pacemaker wire visualized in the right ventricle. Right Atrium Normal right atrial size. Left Atrium Moderately increased left atrial size. Mitral Valve Mild mitral annular calcification. Structurally normal mitral valve. No mitral valve stenosis. Mild mitral valve regurgitation. Aortic Valve Structurally normal trileaflet aortic valve. No aortic valve stenosis. Trace aortic valve regurgitation. Tricuspid Valve Structurally normal tricuspid valve. No tricuspid valve stenosis. Trace tricuspid valve regurgitation. Pulmonic Valve Structurally normal pulmonic valve. No pulmonary valve stenosis.Trace pulmonary valve regurgitation. Pericardium No pericardial effusion. Aorta Normal size aortic root and proximal ascending aorta. IVC Normal IVC dimension with >50% respiratory change of the inferior vena cava. CONCLUSIONS 1. Normal left ventricular cavity size and systolic function. Left ventricular ejection fraction is estimated at 55 %. No diagnostic regional wall motion abnormalities. 2. Mild mitral valve regurgitation. 3. No significant change when compared to study dated 12/15/2013. Lyndsey Uribe MD (Electronically Signed) Final Date: 06 May 2023 12:26 S
== END 2023-04-30 09:20 | disposition home or self-care (01) ==
PROVIDERS: PCP Family Medicine; Visit Provider Internal Medicine Cardiovascular Disease
DX: I25.10 Atherosclerotic heart disease of native coronary artery without angina pectoris (principal); I50.9 Heart failure, unspecified; I34.0 Nonrheumatic mitral (valve) insufficiency
CPT/HCPCS: 93306

== ENCOUNTER 2023-05-06 10:13 | Outpatient (CLI) | payer MEDICARE, OTHER, SELFPAY ==
[2023-05-06 10:43] LABS: Basophils # 0.1 10^3/uL (0.0-0.1); Basophils % 1.3 %; Eosinophils # 0.3 10^3/uL (0.0-0.8); Eosinophils % 3.5 %; Hematocrit 42.4 % (37.0-47.0); Hemoglobin 13.4 g/dL (11.5-15.3); Lymphocytes % 21.1 %; Mean Corpuscular HGB Conc 31.6 g/dL (30.0-36.0); Mean Corpuscular Hemoglobin 31.2 pg (28.0-34.0); Mean Corpuscular Volume 98.6 fl (81-99); Mean Platelet Volume 9.8 fL (7.4-10.4); Monocytes # 0.8 10^3/uL (0.2-0.9); Monocytes % 8.1 %; Neutrophils # 6.35 10^3/uL (1.8-7.7); Neutrophils % 65.6 %; Nucleated Red Blood Cells % 0 %; Platelet Count 352 10^3/cmm (130-400); White Blood Count 9.7 10^3/uL (4.0-10.0)
[2023-05-06 11:01] LABS: Albumin Level 3.8 g/dL (3.5-5.2); Anion Gap 15.4 (5-19); Blood Urea Nitrogen 36 mg/dL (8-23); Calcium 9.7 mg/dL (8.5-10.5); Carbon Dioxide 25 mmol/L (22-29); Chloride 106 mmol/L (98-107); Glucose 179 mg/dL (65-115); Phosphorus 2.9 mg/dL (2.5-4.5); Potassium 4.4 mmol/L (3.5-5.1); Sodium 142 mmol/L (136-145)
[2023-05-06 11:06] LABS: Creatinine Urine, Random 88 mg/dL (28-217); Microalbumin Random Urine 4 ug/dL (0-20)
[2023-05-06 11:07] LABS: Microalbum Creatinine Ratio Ur 45 mg/dL (0-20)
[2023-05-06 11:14] LABS: Calcium 9.4 mg/dL (8.5-10.5)
[2023-05-06 11:17] LABS: 25 Hydroxy Vitamin D 49 ng/mL (30-100)
[2023-05-06 11:21] LABS: Parathyroid Hormone 60.8 pg/mL (15-65)
[2023-05-09 13:45] LABS: Vit D 1,25 (Oh)2, Total 24 pg/mL (18-72); Vit D2 1,25 (Oh)2 <8 pg/mL; Vit D3 1,25 (Oh)2 24 pg/mL
== END 2023-05-06 10:14 | disposition home or self-care (01) ==
PROVIDERS: PCP Family Medicine; Visit Provider Internal Medicine Nephrology
DX: E11.9 Type 2 diabetes mellitus without complications (principal); E78.5 Hyperlipidemia, unspecified; I25.10 Atherosclerotic heart disease of native coronary artery without angina pectoris; I48.91 Unspecified atrial fibrillation; I50.9 Heart failure, unspecified; N18.4 Chronic kidney disease, stage 4 (severe)
CPT/HCPCS: 36415; 80069; 82044; 82306; 82310; 82652; 83970; 85025

== ENCOUNTER → 2023-05-08 10:37 | Outpatient (BNVA) | payer MEDICARE, OTHER, SELFPAY | PROVIDERS: PCP Family Medicine; Visit Provider Internal Medicine Cardiovascular Disease | DX: I48.91 Unspecified atrial fibrillation (principal) | CPT/HCPCS: 85610 ==

== ENCOUNTER 2023-05-12 11:23 | Outpatient (CLI) | payer MEDICARE, OTHER, SELFPAY ==
[2023-05-12 12:53] LABS: Thyroid Stimulating Hormone 5.48 uIU/mL (0.27-4.20)
== END 2023-05-12 11:24 | disposition home or self-care (01) ==
LOC: LAB 11:28
PROVIDERS: PCP Family Medicine; Visit Provider Internal Medicine
DX: E03.9 Hypothyroidism, unspecified (principal); Z79.899 Other long term (current) drug therapy
CPT/HCPCS: 81000; 84443; 87077; 87086; 87184

== ENCOUNTER 2023-05-14 09:14 | Outpatient (CLI) | payer MEDICARE, OTHER, SELFPAY ==
--- NOTE | 2023-05-14 09:30 | US_ITS ---
WS: [id number] RENAL ULTRASOUND HISTORY: RETENTION OF URINE/FLANK PAIN COMPARISON: CT 07/28/2022 TECHNIQUE: 2-D and color Doppler imaging of the kidney submitted. Right kidney: 9.0 cm x 4.5 cm x 5.2 cm. Cortex: 1.0 cm Mild increased echogenicity throughout the kidney. Cortex is lower normal size. Reidentified is a sim ple cyst exophytic from the lower pole measuring 1.9 x 2.3 x 2.3 cm. Previously described on a CT. No solid mass. Left kidney: 10.4 cm x 5.2 cm x 5.3 cm. Cortex: 1.0 cm Normal size kidney with increased echogenicity throughout. There are a few small acquired cortical cy sts with the largest measuring 1.3 x 1.4 x 1.2 cm. No solid mass. Aorta: Normal. Urinary Bladder: Nondistended bladder. Only minimal bladder distention. No intraluminal filling defec t. IMPRESSION: 1. Mild chronic medical renal disease. Mild increased echogenicity with thinning of the cortex. 2. No renal obstruction.
== END 2023-05-14 09:15 | disposition home or self-care (01) ==
PROVIDERS: PCP Family Medicine; Visit Provider Registered Nurse
DX: R33.9 Retention of urine, unspecified (principal); R10.9 Unspecified abdominal pain; N18.9 Chronic kidney disease, unspecified
CPT/HCPCS: 76770

== ENCOUNTER 2023-05-26 12:29 | Outpatient (CLI) | payer MEDICARE, OTHER, SELFPAY ==
[2023-05-26 13:36] LABS: Add Urine Microscopic? YES; Bilirubin Urine Neg (Negative); Blood Urine Neg (Negative); Glucose Urine UA Norm (Normal); Ketones Urine Negative (Negative); Leukocyte Esterase Urine 2+ (Negative); Nitrate Urine Negative (Negative); Protein Urine Neg (Negative); Specific Gravity, Urine 1.005 (1.005-1.030); Urine Appearance Clear (CLEAR); Urine Color Yellow (Yellow); Urobilinogen Urine Norm (Negative); pH Urine 7 (5-7)
[2023-05-26 13:37] LABS: Add Urine Culture? No; Bacteria Urine 1+ /hpf; Squamous Epithelial Cell Urine 0-4 /hpf (0-5); WBC Urine 15-25 /hpf (0-5)
== END 2023-05-26 12:30 | disposition home or self-care (01) ==
PROVIDERS: PCP Family Medicine; Visit Provider Registered Nurse
DX: N18.4 Chronic kidney disease, stage 4 (severe) (principal)
CPT/HCPCS: 81001; 87086

== ENCOUNTER → 2023-06-05 09:41 | Outpatient (BNVA) | payer MEDICARE, OTHER, SELFPAY | PROVIDERS: PCP Family Medicine; Visit Provider Internal Medicine Cardiovascular Disease | DX: I48.91 Unspecified atrial fibrillation (principal) | CPT/HCPCS: 85610 ==

== ENCOUNTER → 2023-07-03 09:32 | Outpatient (BNVA) | payer MEDICARE, OTHER, SELFPAY | PROVIDERS: PCP Family Medicine; Visit Provider Internal Medicine Cardiovascular Disease | DX: I48.91 Unspecified atrial fibrillation (principal) | CPT/HCPCS: 85610 ==

== ENCOUNTER → 2023-08-14 10:08 | Outpatient (BNVA) | payer MEDICARE, OTHER, SELFPAY | PROVIDERS: PCP Family Medicine; Visit Provider Internal Medicine Cardiovascular Disease | DX: I48.91 Unspecified atrial fibrillation (principal) | CPT/HCPCS: 85610 ==

== ENCOUNTER → 2023-09-03 10:09 | Outpatient (BNVA) | payer MEDICARE, OTHER, SELFPAY | PROVIDERS: PCP Family Medicine; Visit Provider Internal Medicine Cardiovascular Disease | DX: I48.91 Unspecified atrial fibrillation (principal) | CPT/HCPCS: 85610 ==

== ENCOUNTER 2023-09-05 08:32 | Outpatient (CLI) | payer MEDICARE, OTHER, SELFPAY ==
[2023-09-05 08:53] LABS: Basophils # 0.1 10^3/uL (0.0-0.1); Basophils % 1.1 %; Eosinophils # 0.5 10^3/uL (0.0-0.8); Eosinophils % 4.2 %; Hematocrit 40.4 % (36-47); Lymphocytes # 2.4 10^3/uL (0.8-4.8); Lymphocytes % 21.2 %; Mean Corpuscular HGB Conc 31.9 g/dL (30-55); Mean Corpuscular Volume 100.2 fl (85-98); Mean Platelet Volume 9.4 fL (7.4-10.4); Monocytes # 1.2 10^3/uL (0.2-0.9); Monocytes % 10.6 %; Neutrophils # 6.91 10^3/uL (1.8-7.7); Neutrophils % 62.4 %; Nucleated Red Blood Cells % 0 %; Platelet Count 298 10^3/cmm (157-399); Red Blood Count 4.03 10^6/uL (3.85-5.65); White Blood Count 11.07 10^3/uL (3.29-11.43)
[2023-09-05 09:23] LABS: Alanine Aminotransferase 17 U/L (0-33); Albumin Level 3.7 g/dL (3.5-5.2); Alkaline Phosphatase 98 U/L (35-105); Anion Gap 15.5 (5-19); Aspartate Amino Transferase 14 U/L (0-32); Blood Urea Nitrogen 36 mg/dL (8-23); Calcium 10.6 mg/dL (8.5-10.5); Carbon Dioxide 23 mmol/L (22-29); Chloride 109 mmol/L (98-107); Chol HDL Ratio 3.86 mg/dL (0.0-4.40); Cholesterol 197 mg/dL (0-200); Estmated Average Glucose 154; Globulin 2.8 g/dL (1.3-4.6); Glucose 129 mg/dL (65-115); HDL Cholesterol 51 mg/dL (60-100); LDL Cholesterol Calculated 95 mg/dL (50-129); LDL HDL Ratio 1.86 RATIO (0.00-3.22); Osmolality Calculated 306 mOsm/kg (285-295); Potassium 4.5 mmol/L (3.5-5.1); Sodium 143 mmol/L (136-145); Thyroid Stimulating Hormone 2.58 uIU/mL (0.27-4.20); Total Bilirubin 0.4 mg/dL (0.15-1.2); Total Protein 6.5 g/dL (6.6-8.7); Triglycerides 254 mg/dL (0-150)
== END 2023-09-05 08:33 | disposition home or self-care (01) ==
LOC: LAB 08:32
PROVIDERS: PCP Family Medicine; Visit Provider Family Medicine
DX: Z13.6 Encounter for screening for cardiovascular disorders (principal); I10 Essential (primary) hypertension; I50.32 Chronic diastolic (congestive) heart failure; I25.10 Atherosclerotic heart disease of native coronary artery without angina pectoris; I48.91 Unspecified atrial fibrillation; E78.5 Hyperlipidemia, unspecified; E11.9 Type 2 diabetes mellitus without complications; E03.9 Hypothyroidism, unspecified; N18.4 Chronic kidney disease, stage 4 (severe)
CPT/HCPCS: 36415; 80053; 80061; 83036; 84443; 85025

== ENCOUNTER → 2023-09-17 09:14 | Outpatient (BNVA) | payer MEDICARE, OTHER, SELFPAY | PROVIDERS: PCP Family Medicine; Visit Provider Internal Medicine Cardiovascular Disease | DX: I48.91 Unspecified atrial fibrillation (principal) | CPT/HCPCS: 85610 ==

== ENCOUNTER → 2023-09-24 09:00 | Outpatient (BNVA) | payer MEDICARE, OTHER, SELFPAY | PROVIDERS: PCP Family Medicine; Visit Provider Internal Medicine Cardiovascular Disease | DX: I48.91 Unspecified atrial fibrillation (principal) | CPT/HCPCS: 85610 ==

== ENCOUNTER → 2023-10-08 14:02 | Outpatient (BNVA) | payer MEDICARE, OTHER, SELFPAY | PROVIDERS: PCP Family Medicine; Visit Provider Internal Medicine Cardiovascular Disease | DX: I48.91 Unspecified atrial fibrillation (principal) | CPT/HCPCS: 85610 ==

== ENCOUNTER 2023-11-04 10:53 | Outpatient (CLI) | payer MEDICARE, OTHER, SELFPAY ==
[2023-11-04 11:23] LABS: Basophils # 0.1 10^3/uL (0.0-0.1); Basophils % 0.9 %; Eosinophils # 0.6 10^3/uL (0.0-0.8); Eosinophils % 6.3 %; Hematocrit 41.4 % (36-47); Lymphocytes % 22.5 %; Mean Corpuscular HGB Conc 31.9 g/dL (30-55); Mean Corpuscular Hemoglobin 31.4 pg (27-33); Mean Corpuscular Volume 98.3 fl (85-98); Mean Platelet Volume 10.1 fL (7.4-10.4); Monocytes # 0.7 10^3/uL (0.2-0.9); Monocytes % 8.2 %; Neutrophils # 5.49 10^3/uL (1.8-7.7); Neutrophils % 61.8 %; Nucleated Red Blood Cells % 0 %; Platelet Count 306 10^3/cmm (157-399); Red Blood Count 4.21 10^6/uL (3.85-5.65); Red Cell Distribution Width 12.8 % (12.1-15.1); White Blood Count 8.89 10^3/uL (3.29-11.43)
[2023-11-04 11:46] LABS: Albumin Level 3.6 g/dL (3.5-5.2); Anion Gap 16.4 (5-19); Blood Urea Nitrogen 39 mg/dL (8-23); Calcium 9.5 mg/dL (8.5-10.5); Carbon Dioxide 26 mmol/L (22-29); Chloride 101 mmol/L (98-107); Glucose 340 mg/dL (65-115); Phosphorus 3.4 mg/dL (2.5-4.5); Potassium 4.4 mmol/L (3.5-5.1); Sodium 139 mmol/L (136-145)
[2023-11-04 11:54] LABS: Creatinine Urine, Random 119 mg/dL (28-217); Microalbum Creatinine Ratio Ur 17 mg/dL (0-20); Microalbumin Random Urine 2 ug/dL (0-20)
[2023-11-04 11:59] LABS: Thyroid Stimulating Hormone 2.33 uIU/mL (0.27-4.20)
[2023-11-04 12:18] LABS: Calcium 9.5 mg/dL (8.5-10.5)
[2023-11-04 12:26] LABS: Parathyroid Hormone 30.7 pg/mL (15-65)
== END 2023-11-04 10:54 | disposition home or self-care (01) ==
LOC: LAB 10:55
PROVIDERS: PCP Family Medicine; Visit Provider Registered Nurse
DX: N18.4 Chronic kidney disease, stage 4 (severe) (principal); E03.9 Hypothyroidism, unspecified
CPT/HCPCS: 36415; 80069; 82044; 82310; 83970; 84443; 85025

== ENCOUNTER → 2023-11-11 09:33 | Outpatient (BNVA) | payer MEDICARE, OTHER, SELFPAY | PROVIDERS: PCP Family Medicine; Visit Provider Internal Medicine | DX: I25.10 Atherosclerotic heart disease of native coronary artery without angina pectoris (principal); I48.91 Unspecified atrial fibrillation | CPT/HCPCS: 36415; 85610 ==

== ENCOUNTER → 2023-11-18 08:26 | Outpatient (BNVA) | payer MEDICARE, OTHER, SELFPAY | PROVIDERS: PCP Family Medicine; Visit Provider Internal Medicine | DX: I25.10 Atherosclerotic heart disease of native coronary artery without angina pectoris (principal); I48.91 Unspecified atrial fibrillation | CPT/HCPCS: 85610 ==

== ENCOUNTER → 2023-12-09 09:34 | Outpatient (BNVA) | payer MEDICARE, OTHER, SELFPAY | PROVIDERS: PCP Family Medicine; Visit Provider Internal Medicine | DX: I48.91 Unspecified atrial fibrillation (principal); I25.10 Atherosclerotic heart disease of native coronary artery without angina pectoris | CPT/HCPCS: 85610 ==

== ENCOUNTER → 2023-12-15 14:15 | Outpatient (BNVA) | payer MEDICARE, OTHER, SELFPAY | PROVIDERS: PCP Family Medicine; Visit Provider Internal Medicine | DX: I25.10 Atherosclerotic heart disease of native coronary artery without angina pectoris (principal); I13.0 Hypertensive heart and chronic kidney disease with heart failure and stage 1 through stage 4 chronic kidney disease, or unspecified chronic kidney disease; N18.4 Chronic kidney disease, stage 4 (severe); I50.32 Chronic diastolic (congestive) heart failure; Z95.0 Presence of cardiac pacemaker; I48.91 Unspecified atrial fibrillation; Z87.891 Personal history of nicotine dependence | CPT/HCPCS: 99214 ==

== ENCOUNTER → 2023-12-23 08:53 | Outpatient (BNVA) | payer MEDICARE, OTHER, SELFPAY | PROVIDERS: PCP Family Medicine; Visit Provider Internal Medicine | DX: I25.10 Atherosclerotic heart disease of native coronary artery without angina pectoris (principal); I48.91 Unspecified atrial fibrillation | CPT/HCPCS: 85610 ==

== ENCOUNTER → 2024-01-20 09:20 | Outpatient (BNVA) | payer MEDICARE, OTHER, SELFPAY | PROVIDERS: PCP Family Medicine; Visit Provider Internal Medicine | DX: I25.10 Atherosclerotic heart disease of native coronary artery without angina pectoris (principal); I48.91 Unspecified atrial fibrillation | CPT/HCPCS: 85610 ==

== ENCOUNTER → 2024-02-17 09:05 | Outpatient (BNVA) | payer MEDICARE, OTHER, SELFPAY | PROVIDERS: PCP Family Medicine; Visit Provider Internal Medicine | DX: I25.10 Atherosclerotic heart disease of native coronary artery without angina pectoris (principal); I48.91 Unspecified atrial fibrillation | CPT/HCPCS: 85610 ==

== ENCOUNTER → 2024-03-16 09:16 | Outpatient (BNVA) | payer MEDICARE, OTHER, SELFPAY | PROVIDERS: PCP Family Medicine; Visit Provider Internal Medicine | DX: I25.10 Atherosclerotic heart disease of native coronary artery without angina pectoris (principal); I48.91 Unspecified atrial fibrillation | CPT/HCPCS: 85610 ==

== ENCOUNTER → 2024-03-29 10:01 | Outpatient (BNVA) | payer MEDICARE, OTHER, SELFPAY | PROVIDERS: PCP Family Medicine; Visit Provider Internal Medicine | DX: I25.10 Atherosclerotic heart disease of native coronary artery without angina pectoris (principal); I48.91 Unspecified atrial fibrillation | CPT/HCPCS: 85610 ==

== ENCOUNTER → 2024-04-15 14:11 | Outpatient (BNVA) | payer MEDICARE, OTHER, SELFPAY | PROVIDERS: PCP Family Medicine; Visit Provider Internal Medicine Cardiovascular Disease | DX: Z95.0 Presence of cardiac pacemaker (principal); I48.91 Unspecified atrial fibrillation; I25.10 Atherosclerotic heart disease of native coronary artery without angina pectoris; I13.0 Hypertensive heart and chronic kidney disease with heart failure and stage 1 through stage 4 chronic kidney disease, or unspecified chronic kidney disease; I50.32 Chronic diastolic (congestive) heart failure; E78.5 Hyperlipidemia, unspecified; Z79.01 Long term (current) use of anticoagulants; E11.22 Type 2 diabetes mellitus with diabetic chronic kidney disease; N18.4 Chronic kidney disease, stage 4 (severe); I45.9 Conduction disorder, unspecified | CPT/HCPCS: 93005; 99214 ==

== ENCOUNTER → 2024-04-22 14:50 | Outpatient (BNVA) | payer MEDICARE, OTHER, SELFPAY | PROVIDERS: PCP Family Medicine; Visit Provider Internal Medicine | DX: I25.10 Atherosclerotic heart disease of native coronary artery without angina pectoris (principal); I48.91 Unspecified atrial fibrillation | CPT/HCPCS: 93005 ==

== ENCOUNTER → 2024-04-30 09:00 | Outpatient (BNVA) | payer MEDICARE, OTHER, SELFPAY | PROVIDERS: PCP Family Medicine; Visit Provider Internal Medicine Cardiovascular Disease | DX: I25.10 Atherosclerotic heart disease of native coronary artery without angina pectoris (principal); I48.91 Unspecified atrial fibrillation | CPT/HCPCS: 85610; 93005 ==

== ENCOUNTER 2024-05-04 12:02 | Outpatient (CLI) | payer MEDICARE, OTHER, SELFPAY ==
[2024-05-04 12:46] LABS: Basophils # 0.1 10^3/uL (0.0-0.1); Basophils % 1.3 %; Eosinophils # 0.3 10^3/uL (0.0-0.8); Hematocrit 39.9 % (36-47); Lymphocytes # 1.6 10^3/uL (0.8-4.8); Lymphocytes % 20.8 %; Mean Corpuscular HGB Conc 31.8 g/dL (30-55); Mean Corpuscular Hemoglobin 32.2 pg (27-33); Mean Corpuscular Volume 101.3 fl (85-98); Monocytes # 0.8 10^3/uL (0.2-0.9); Monocytes % 10.3 %; Neutrophils # 4.89 10^3/uL (1.8-7.7); Neutrophils % 63.1 %; Nucleated Red Blood Cells % 0 %; Platelet Count 294 10^3/cmm (157-399); Red Blood Count 3.94 10^6/uL (3.85-5.65); Red Cell Distribution Width 12.8 % (12.1-15.1); White Blood Count 7.75 10^3/uL (3.29-11.43)
[2024-05-04 13:02] LABS: INR 2.54 (0.8-1.2)
[2024-05-04 13:05] LABS: Creatinine Urine, Random 105 mg/dL (28-217); Microalbum Creatinine Ratio Ur 29 mg/dL (0-20); Microalbumin Random Urine 3 ug/dL (0-20)
[2024-05-04 13:08] LABS: Calcium 9.8 mg/dL (8.5-10.5)
[2024-05-04 13:09] LABS: Albumin Level 3.7 g/dL (3.5-5.2); Anion Gap 17.8 (5-19); Blood Urea Nitrogen 39 mg/dL (8-23); Calcium 9.7 mg/dL (8.5-10.5); Carbon Dioxide 24 mmol/L (22-29); Chloride 104 mmol/L (98-107); Glucose 323 mg/dL (65-115); Phosphorus 3.7 mg/dL (2.5-4.5); Potassium 4.8 mmol/L (3.5-5.1); Sodium 141 mmol/L (136-145)
[2024-05-04 13:13] LABS: Parathyroid Hormone 51.9 pg/mL (15-65)
[2024-05-04 13:23] LABS: 25 Hydroxy Vitamin D 41 ng/mL (30-100)
== END 2024-05-04 12:03 | disposition home or self-care (01) ==
PROVIDERS: PCP Family Medicine; Visit Provider Internal Medicine Nephrology
DX: N18.32 Chronic kidney disease, stage 3b; E55.9 Vitamin D deficiency, unspecified
CPT/HCPCS: 36415; 80069; 82044; 82306; 82310; 83970; 85025; 85610

== ENCOUNTER → 2024-05-06 09:17 | Outpatient (BNVA) | payer MEDICARE, OTHER, SELFPAY | PROVIDERS: PCP Family Medicine; Visit Provider Internal Medicine | DX: I25.10 Atherosclerotic heart disease of native coronary artery without angina pectoris (principal); I48.91 Unspecified atrial fibrillation | CPT/HCPCS: 85610 ==

== ENCOUNTER 2024-05-07 10:12 | Day surgery (SDC) | payer MEDICARE, OTHER, SELFPAY ==
--- NOTE | 2024-05-07 10:24 | USCV_ITS ---
Ольга Hickey Age: 83 Gender: F : 1940 Exam Date: 05/07/2024 11:54 Ordering Phys: Benji Santana M.D ([email or web address]) Technologist: Xavier Mckee Exam Location: [facility] [place] Indication: afib BP: / HR: Rhythm: Atrial fibrillation Technical Quality: MEASUREMENTS (Male / Female) Normal Values Medications Per anesthesia team Complications None Proc. Components After anesthesia team sedated patient, we proceeded with advancing probe. FINDINGS Left Ventricle Left ventricle is normal size. LV systolic function is normal. Right Ventricle Normal in size and function Right Atrium Dilated. Pacemaker lead is seen Left Atrium Severely dilated LA Appendage Left atrium has some smoke noted but no thrombus seen. IA Septum Grossly normal Mitral Valve Structurally normal. Mild to moderate mitral regurgitation. Aortic Valve Structurally normal Tricuspid Valve Structurally normal. Pulmonic Valve Not well visualized Pericardium Normal Aorta Mild plaque CONCLUSIONS Left ventricle is normal in size. LV systolic function is normal. Severely dilated left atrium Left atrium has some small to moderate however no thrombus seen in left atrial appendage Mild to moderate mitral regurgitation Mild aortic plaque. Benji Santana MD (Electronically Signed) Final Date: 08 May 2024 19:10 S
--- NOTE | 2024-05-07 10:27 | ECG_ITS ---
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 Measurements Intervals [place] Rate: 65 P: 0 ID: 0 QRS: -3 QRSD: 109 T: -45 QT: 420 QTc: 437 Interpretive Statements ATRIAL FIBRILLATION ST DEVIATION AND MODERATE T-WAVE ABNORMALITY, CONSIDER LATERAL ISCHEMIA [-0.1+ mV T-WAVE IN I/aVL/V5/V6] ST DEVIATION AND MODERATE T-WAVE ABNORMALITY, CONSIDER INFERIOR ISCHEMIA [-0.1+ mV T-WAVE IN II/aVF] Compared to ECG 04/30/2024 09:09:53 Intraventricular conduction delay no longer present T-wave abnormality still present Possible ischemia still present Electronically Signed On 05-07-2024 11:29:16 CDT by Benji Santana M.D. [id number]
[2024-05-07 10:35] VITALS: BP 160/71; PULSE 70; RESP 18; TEMP 36.3; O2SAT 100
--- NOTE | 2024-05-07 11:06 | P.ANESASSM_ITS ---
Pre-Anesthetic Assessment Height/Weight: Height 1.63 m Temp Pulse Resp BP Pulse Ox O2 Del Method 97.4 F L 70 18 160/71 100 Room Air 05/07/24 10:35 05/07/24 10:35 05/07/24 10:35 05/07/24 10:35 05/07/24 10:35 05/07/24 10:35 Operation Date: 05/07/24 12:00 Proposed Procedures p WINIFRED 96073, 20454, I48.91(Not Applicable) - Benji Santana M.D s Cardioversion(Not Applicable) - Ro Bliss Beta Pamela taken within 24 hours: Yes Social No alcohol and No tobacco Airway Submandibular: within normal limits Cervical ROM: within normal limits Mallampati: Class II Pulmonary Exertional Dyspnea and Shortness of Breath CV/HEM Arrythmia, Coronary Artery Disease and Congestive Heart Failure s/p pacemaker Metabolic Diabetes Mellitus, Hyperlipidemia and Thyroid Disease (hypothroid) Anesthetic Plan ASA status: 4 Anesthesia: MAC Medications/Allergies Home Medications Medication Instructions Recorded Confirmed Last Taken Type cholecalciferol (vitamin D3) 25 1,000 unit PO DAILY@0800 05/01/20 05/07/24 05/06/24 History mcg (1,000 unit) capsule allopurinol 100 mg tablet 100 mg PO DAILY@0800 #90 tabs 10/13/22 05/07/24 05/06/24 Rx insulin detemir U-100 100 unit/mL 24 unit SUBCUT BEDTIME@199904/21/23 05/07/24 05/06/24 History (3 mL) subcutaneous pen (Levemir FlexTouch U-100 Insulin) multivitamin 1 tab PO DAILY 04/21/23 05/07/24 05/06/24 History warfarin 1 mg tablet See Rx Instructions .Route 09/16/23 05/07/24 05/06/24 Rx .COMPLEX #180 tabs fenofibrate nanocrystallized 145 145 mg PO DAILY@0800 #90 tabs 10/01/23 05/07/24 05/06/24 Rx mg tablet metoprolol tartrate 25 mg tablet 25 mg PO BID@08,1999 #180 tabs 12/10/23 05/07/24 05/07/24 Rx amiodarone 200 mg tablet 200 mg PO DAILY #90 tabs 04/15/24 05/07/24 05/07/24 Rx diltiazem HCl 240 mg 240 mg PO DAILY 05/05/24 05/07/24 05/07/24 History capsule,extended release 24 hr dorzolamide 22.3 mg-timolol 6.8 1 drp ophthalmic (eye) BID 05/05/24 05/07/24 05/07/24 History mg/mL eye drops hydrochlorothiazide 25 mg tablet 25 mg PO DAILY 05/05/24 05/07/24 05/07/24 His tory levothyroxine 75 mcg tablet 75 mcg PO DAILY 05/05/24 05/07/24 05/06/24 History losartan 50 mg tablet 50 mg PO .8AM 05/05/24 05/07/24 05/06/24 History methenamine hippurate 1 gram tablet 1 g PO DAILY 05/05/24 05/07/24 05/06/24 History nateglinide 120 mg tablet 120 mg PO TID 05/05/24 05/07/24 05/06/24 History Allergies Allergy/AdvReac Type Severity Reaction Status Date / Time aspirin Allergy Intermediate Hallucinati Verified 04/15/24 13:47 [From Excedrin Migraine] ons caffeine Allergy Intermediate Hallucinati Verified 04/15/24 13:47 [From Excedrin Migraine] ons meperidine [From Demerol] Allergy Intermediate Unknown Verified 05/05/24 11:07 colesevelam [From WelChol] Allergy Mild ADR-Nausea Verified 05/05/24 11:07 indomethacin Allergy Mild ADR-Dizzine Verified 05/05/24 11:07 ss amlodipine Allergy Unknown Unknown Verified 05/05/24 11:07 fentanyl Allergy Unknown ADR-Vomitin Verified 05/05/24 11:07 g omega-3 acid ethyl esters Allergy Unknown Unknown Verified 04/15/24 13:47 [From Lovaza] Oexfjsf-ORT-EkY Reductase Allergy Unknown ADR-Cramping Verified 05/05/24 11:07 Inhibitor of the [Ewivnju-Aoy-Rxh Reductase Muscles Inhibitor] [facility] Anesthesia Medical History Diabetes mellitus Hyperlipidemia CKD (chronic kidney disease) stage 4, GFR 15-29 ml/min Pacemaker HTN (hypertension) CHF (congestive heart failure) Coronary artery disease Surgical History S/P hemorrhoidectomy S/P hysterectomy S/P lens implant Family History Father Cancer Colon CA Sister Cancer Breast CA Other CAD (coronary artery disease) Diabetes Gout Hypertension Social History Smoking and tobacco/nicotine status: never used tobacco/nicotine Data Anesthesia Cardiac Studies: Echocardiogram 04/30/23
[2024-05-07 11:36] VITALS: BMI 32.5
[2024-05-07] MEDS: sodium chloride 0.9% 1,000 ML 30 ML IV (11:46)
[2024-05-07 11:55] LABS: Glucose Point of Care 236 mg/dL (70-110)
--- NOTE | 2024-05-07 12:12 | W.PM.OPSUD ---
Surgery/Procedure H&P Update DATE OF PROCEDURE: May 07, 2024 DATE H&P PERFORMED: 04/15/24 H&P UPDATE INFORMATION: I have reviewed H&P completed within last 30 days, I have examined patient prior to procedure and No changes to prior documentation PREOP DIAGNOSIS: Atrial fibrillation PRIMARY INDICATION FOR PROCEDURE: Atrial fibrillation PLANNED PROCEDURE: Operation Date: 05/07/24 12:00 Proposed Procedures p WINIFRED 58244, 66885, I48.91(Not Applicable) - Ro Bliss Cardioversion(Not Applicable) - Benji Santana M.D Anesthesia team available for sedation
[2024-05-07 12:34] VITALS: BP 101/45; PULSE 60; RESP 13; TEMP 36.2; O2SAT 100
--- NOTE | 2024-05-07 12:36 | PM.PROC ---
Procedure Note: Date of procedure: 05/07/24 Pre-procedure diagnosis: Atrial fibrillation Post-procedure diagnosis: other (Paced rhythm) Procedure: WINIFRED/ Cardioversion: After anesthesia team sedated the patient, we proceeded with advancing WINIFRED probe. Left atrial appendage thrombus was ruled out. We then proceeded with synchronized cardioversion with 200J and delivered 1 shock. Post cardioversion, patient's pacemaker started pacing as heart rate decreased. Intermittent P waves seen. Patient will need outpatient EKG (once heart rate increases) /device interrogation to determine underlying rhythm however given lack of consistent P waves, patient likely staying in atrial fibrillation. As patient has a very large left atrium, chances of staying in sinus rhythm are very low. Op report anesthesia: Other Performing Provider: Benji Santana Complications: None Condition: stable Disposition: same day Coding Level of Care Code Acute Code for Chg Fwd
--- NOTE | 2024-05-07 12:43 | ECG_ITS ---
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 Measurements Intervals [place] Rate: 60 P: 214 AL: 71 QRS: -51 QRSD: 166 T: 124 QT: 504 QTc: 504 Interpretive Statements ELECTRONIC VENTRICULAR PACEMAKER Compared to ECG 05/07/2024 11:24:26 Atrial fibrillation no longer present T-wave abnormality no longer present Possible ischemia no longer present Electronically Signed On 05-07-2024 20:03:45 CDT by Benji Santana M.D. [id number]
--- NOTE | 2024-05-07 12:43 | ANE.PACU2 ---
Inpatient post-anesthesia follow up: Airway intact: Yes Vital signs: Temperature 97.4 F Pulse Rate 70 Respiratory Rate 18 Blood Pressure 160/71 Pulse Oximetry 100 Oxygen Delivery Me thod Room Air Oxygen Flow Rate Fraction of Inspir ed Oxygen Hydration adequate: Yes Nausea and vomiting: No Pain level: n/a Mental status: Baseline (appropriate post sedation)
[2024-05-07 12:49] VITALS: BP 148/60; PULSE 60; RESP 16; O2SAT 92
[2024-05-07 13:26] VITALS: BP 165/66; PULSE 60; RESP 18; O2SAT 96
== END 2024-05-07 13:45 | disposition home or self-care (01) ==
PROVIDERS: PCP Family Medicine; Visit Provider Internal Medicine
PROC: (CPT 93312; principal; 2024-05-07 12:00)
PROC: 5A2204Z Restoration of Cardiac Rhythm, Single (ICD-10-PCS; 2024-05-07 12:00)
DX: I48.91 Unspecified atrial fibrillation (principal); I34.0 Nonrheumatic mitral (valve) insufficiency; I70.0 Atherosclerosis of aorta; I25.10 Atherosclerotic heart disease of native coronary artery without angina pectoris; E11.22 Type 2 diabetes mellitus with diabetic chronic kidney disease; I13.0 Hypertensive heart and chronic kidney disease with heart failure and stage 1 through stage 4 chronic kidney disease, or unspecified chronic kidney disease; N18.4 Chronic kidney disease, stage 4 (severe); I50.9 Heart failure, unspecified; Z95.0 Presence of cardiac pacemaker; Z79.4 Long term (current) use of insulin; E78.5 Hyperlipidemia, unspecified; E03.9 Hypothyroidism, unspecified; Z79.01 Long term (current) use of anticoagulants
CPT/HCPCS: 36416; 82962; 92960; 93005; 93312; 93320; 93325; J2704; J7030

== ENCOUNTER → 2024-05-20 17:55 | Outpatient (BNVA) | payer MEDICARE, OTHER, SELFPAY | PROVIDERS: PCP Family Medicine | DX: R39.9 Unspecified symptoms and signs involving the genitourinary system (principal) | CPT/HCPCS: 81000; 87086 ==

== ENCOUNTER → 2024-05-25 09:53 | Outpatient (BNVA) | payer MEDICARE, OTHER, SELFPAY | PROVIDERS: PCP Family Medicine; Visit Provider Nurse Practitioner Family | DX: I48.91 Unspecified atrial fibrillation (principal); I45.4 Nonspecific intraventricular block | CPT/HCPCS: 93005; 99214 ==

== ENCOUNTER → 2024-05-31 09:29 | Outpatient (BNVA) | payer MEDICARE, OTHER, SELFPAY | PROVIDERS: PCP Family Medicine; Visit Provider Internal Medicine | DX: I48.91 Unspecified atrial fibrillation (principal) | CPT/HCPCS: 85610 ==

== ENCOUNTER → 2024-06-07 09:09 | Outpatient (BNVA) | payer MEDICARE, OTHER, SELFPAY | PROVIDERS: PCP Family Medicine; Visit Provider Internal Medicine Cardiovascular Disease | DX: I25.10 Atherosclerotic heart disease of native coronary artery without angina pectoris (principal); I48.11 Longstanding persistent atrial fibrillation | CPT/HCPCS: 85610 ==

== ENCOUNTER 2024-06-11 12:02 | Outpatient (CLI) | payer MEDICARE, OTHER, SELFPAY ==
[2024-06-11 12:43] LABS: Albumin Level 3.7 g/dL (3.5-5.2); Anion Gap 18.7 (5-19); Blood Urea Nitrogen 49 mg/dL (8-23); Calcium 9.6 mg/dL (8.5-10.5); Carbon Dioxide 25 mmol/L (22-29); Chloride 100 mmol/L (98-107); Glucose 256 mg/dL (65-115); Phosphorus 3.6 mg/dL (2.5-4.5); Potassium 4.7 mmol/L (3.5-5.1); Sodium 139 mmol/L (136-145)
== END 2024-06-11 12:03 | disposition home or self-care (01) ==
LOC: LAB 12:03
PROVIDERS: PCP Family Medicine; Visit Provider Registered Nurse
DX: N18.32 Chronic kidney disease, stage 3b (principal)
CPT/HCPCS: 80069

== ENCOUNTER → 2024-06-17 14:42 | Outpatient (BNVA) | payer MEDICARE, OTHER, SELFPAY | PROVIDERS: PCP Family Medicine; Visit Provider Internal Medicine Cardiovascular Disease | DX: I25.10 Atherosclerotic heart disease of native coronary artery without angina pectoris (principal); I13.0 Hypertensive heart and chronic kidney disease with heart failure and stage 1 through stage 4 chronic kidney disease, or unspecified chronic kidney disease; E11.22 Type 2 diabetes mellitus with diabetic chronic kidney disease; N18.4 Chronic kidney disease, stage 4 (severe); Z79.4 Long term (current) use of insulin; I50.32 Chronic diastolic (congestive) heart failure; Z95.0 Presence of cardiac pacemaker; I48.11 Longstanding persistent atrial fibrillation; Z87.891 Personal history of nicotine dependence; Z79.01 Long term (current) use of anticoagulants | CPT/HCPCS: 99213 ==

== ENCOUNTER → 2024-06-28 09:51 | Outpatient (BNVA) | payer MEDICARE, OTHER, SELFPAY | PROVIDERS: PCP Family Medicine; Visit Provider Internal Medicine Cardiovascular Disease | DX: I25.10 Atherosclerotic heart disease of native coronary artery without angina pectoris (principal); I48.11 Longstanding persistent atrial fibrillation | CPT/HCPCS: 85610 ==

== ENCOUNTER 2024-07-19 08:56 | Outpatient (CLI) | payer MEDICARE, OTHER, SELFPAY ==
[2024-07-19 10:00] LABS: Basophils # 0.1 10^3/uL (0.0-0.1); Basophils % 1.2 %; Eosinophils # 0.3 10^3/uL (0.0-0.8); Eosinophils % 2.9 %; Hematocrit 40.9 % (36-47); Lymphocytes # 1.5 10^3/uL (0.8-4.8); Mean Corpuscular HGB Conc 31.1 g/dL (30-55); Mean Corpuscular Hemoglobin 31.8 pg (27-33); Mean Corpuscular Volume 102.3 fl (85-98); Mean Platelet Volume 9.9 fL (7.4-10.4); Monocytes # 0.8 10^3/uL (0.2-0.9); Monocytes % 7.6 %; Neutrophils # 7.24 10^3/uL (1.8-7.7); Neutrophils % 72.7 %; Nucleated Red Blood Cells % 0 %; Platelet Count 378 10^3/cmm (157-399); Red Cell Distribution Width 13.3 % (12.1-15.1); White Blood Count 9.97 10^3/uL (3.29-11.43)
[2024-07-19 10:15] LABS: Creatinine Urine, Random 73 mg/dL (28-217); Microalbumin Random Urine 6 ug/dL (0-20)
[2024-07-19 10:21] LABS: Albumin Level 3.8 g/dL (3.5-5.2); Anion Gap 15.4 (5-19); Blood Urea Nitrogen 31 mg/dL (8-23); Calcium 9.8 mg/dL (8.5-10.5); Carbon Dioxide 25 mmol/L (22-29); Chloride 105 mmol/L (98-107); Glucose 195 mg/dL (65-115); Phosphorus 3.1 mg/dL (2.5-4.5); Potassium 4.4 mmol/L (3.5-5.1); Sodium 141 mmol/L (136-145)
[2024-07-19 10:27] LABS: Microalbum Creatinine Ratio Ur 82 mg/dL (0-20)
[2024-07-19 10:28] LABS: Parathyroid Hormone 26.5 pg/mL (15-65)
== END 2024-07-19 08:57 | disposition home or self-care (01) ==
LOC: LAB 08:58
PROVIDERS: PCP Family Medicine; Visit Provider Registered Nurse
DX: N18.32 Chronic kidney disease, stage 3b (principal)
CPT/HCPCS: 36415; 80069; 82044; 82310; 83970; 85025

== ENCOUNTER → 2024-07-26 09:28 | Outpatient (BNVA) | payer MEDICARE, OTHER, SELFPAY | PROVIDERS: PCP Family Medicine; Visit Provider Internal Medicine Cardiovascular Disease | DX: I25.10 Atherosclerotic heart disease of native coronary artery without angina pectoris (principal); I48.11 Longstanding persistent atrial fibrillation | CPT/HCPCS: 36415; 85610 ==

== ENCOUNTER → 2024-08-02 09:15 | Outpatient (BNVA) | payer MEDICARE, OTHER, SELFPAY | PROVIDERS: PCP Family Medicine; Visit Provider Internal Medicine Cardiovascular Disease | DX: I25.10 Atherosclerotic heart disease of native coronary artery without angina pectoris (principal); I48.11 Longstanding persistent atrial fibrillation | CPT/HCPCS: 85610 ==

== ENCOUNTER → 2024-08-30 09:37 | Outpatient (BNVA) | payer MEDICARE, OTHER, SELFPAY | PROVIDERS: PCP Family Medicine; Visit Provider Internal Medicine Cardiovascular Disease | DX: I25.10 Atherosclerotic heart disease of native coronary artery without angina pectoris (principal); I48.11 Longstanding persistent atrial fibrillation | CPT/HCPCS: 85610 ==

== ENCOUNTER → 2024-09-17 10:03 | Outpatient (BNVA) | payer MEDICARE, OTHER, SELFPAY | PROVIDERS: PCP Family Medicine | DX: Z53.9 Procedure and treatment not carried out, unspecified reason (principal) | CPT/HCPCS: 93793 ==

== ENCOUNTER → 2024-10-10 10:42 | Outpatient (BNVA) | payer MEDICARE, OTHER, SELFPAY | PROVIDERS: PCP Family Medicine; Visit Provider Emergency Medicine | DX: R39.9 Unspecified symptoms and signs involving the genitourinary system (principal) | CPT/HCPCS: 81000; 87086 ==

== ENCOUNTER → 2024-10-22 11:56 | Outpatient (BNVA) | payer MEDICARE, OTHER, SELFPAY | PROVIDERS: PCP Family Medicine | DX: I25.10 Atherosclerotic heart disease of native coronary artery without angina pectoris (principal); I48.11 Longstanding persistent atrial fibrillation | CPT/HCPCS: 85610 ==

== ENCOUNTER → 2024-10-28 09:46 | Outpatient (BNVA) | payer MEDICARE, OTHER, SELFPAY | PROVIDERS: PCP Family Medicine; Visit Provider Internal Medicine Cardiovascular Disease | DX: I25.10 Atherosclerotic heart disease of native coronary artery without angina pectoris (principal) | CPT/HCPCS: 85610 ==

== ENCOUNTER → 2024-11-01 14:09 | Outpatient (BNVA) | payer MEDICARE, OTHER, SELFPAY | PROVIDERS: PCP Family Medicine; Visit Provider Obstetrics & Gynecology | DX: R31.9 Hematuria, unspecified (principal) | CPT/HCPCS: 81000 ==

== ENCOUNTER → 2024-11-15 10:30 | Outpatient (BNVA) | payer MEDICARE, OTHER, SELFPAY | PROVIDERS: PCP Family Medicine; Visit Provider Internal Medicine Cardiovascular Disease | DX: I25.10 Atherosclerotic heart disease of native coronary artery without angina pectoris (principal); I48.11 Longstanding persistent atrial fibrillation | CPT/HCPCS: 85610 ==

== ENCOUNTER → 2024-11-29 11:58 | Outpatient (BNVA) | payer MEDICARE, OTHER, SELFPAY | PROVIDERS: PCP Family Medicine; Visit Provider Internal Medicine Cardiovascular Disease | DX: I25.10 Atherosclerotic heart disease of native coronary artery without angina pectoris (principal); I48.11 Longstanding persistent atrial fibrillation | CPT/HCPCS: 85610 ==

== ENCOUNTER → 2024-12-23 09:00 | Outpatient (BNVA) | payer MEDICARE, OTHER, SELFPAY | PROVIDERS: PCP Family Medicine; Visit Provider Nurse Practitioner Family | DX: Z01.818 Encounter for other preprocedural examination (principal); I13.0 Hypertensive heart and chronic kidney disease with heart failure and stage 1 through stage 4 chronic kidney disease, or unspecified chronic kidney disease; N18.4 Chronic kidney disease, stage 4 (severe); I50.32 Chronic diastolic (congestive) heart failure; I25.10 Atherosclerotic heart disease of native coronary artery without angina pectoris; I48.11 Longstanding persistent atrial fibrillation; Z79.01 Long term (current) use of anticoagulants; Z95.0 Presence of cardiac pacemaker; E78.5 Hyperlipidemia, unspecified; K60.40 Rectal fistula, unspecified; Z87.891 Personal history of nicotine dependence | CPT/HCPCS: 99214 ==

== ENCOUNTER → 2024-12-27 10:53 | Outpatient (BNVA) | payer MEDICARE, OTHER, SELFPAY | PROVIDERS: PCP Family Medicine; Visit Provider Internal Medicine Cardiovascular Disease | DX: I25.10 Atherosclerotic heart disease of native coronary artery without angina pectoris (principal); I48.11 Longstanding persistent atrial fibrillation | CPT/HCPCS: 85610 ==

== ENCOUNTER → 2025-01-03 10:25 | Outpatient (BNVA) | payer MEDICARE, OTHER, SELFPAY | PROVIDERS: PCP Family Medicine; Visit Provider Internal Medicine Cardiovascular Disease | DX: I25.10 Atherosclerotic heart disease of native coronary artery without angina pectoris (principal); I48.11 Longstanding persistent atrial fibrillation | CPT/HCPCS: 85610 ==

== ENCOUNTER 2025-01-17 14:28 | Outpatient (CLI) | payer MEDICARE, OTHER, SELFPAY ==
[2025-01-17 15:24] LABS: Basophils # 0.1 10^3/uL (0.0-0.1); Basophils % 1.2 %; Eosinophils # 0.7 10^3/uL (0.0-0.8); Eosinophils % 7.4 %; Hematocrit 39.8 % (36-47); Lymphocytes # 1.6 10^3/uL (0.8-4.8); Lymphocytes % 17.1 %; Mean Corpuscular HGB Conc 31.4 g/dL (30-55); Mean Corpuscular Hemoglobin 32.3 pg (27-33); Mean Corpuscular Volume 102.8 fl (85-98); Mean Platelet Volume 9.4 fL (7.4-10.4); Monocytes # 1.2 10^3/uL (0.2-0.9); Monocytes % 12.5 %; Neutrophils # 5.84 10^3/uL (1.8-7.7); Neutrophils % 61.3 %; Nucleated Red Blood Cells % 0 %; Platelet Count 452 10^3/cmm (157-399); Red Blood Count 3.87 10^6/uL (3.85-5.65); Red Cell Distribution Width 13.7 % (12.1-15.1); White Blood Count 9.52 10^3/uL (3.29-11.43)
[2025-01-17 16:02] LABS: Calcium 9.5 mg/dL (8.5-10.5); Parathyroid Hormone 57.8 pg/mL (15-65)
[2025-01-17 16:10] LABS: 25 Hydroxy Vitamin D 47 ng/mL (30-100); Albumin Level 3.5 g/dL (3.5-5.2); Blood Urea Nitrogen 36 mg/dL (8-23); Calcium 9.4 mg/dL (8.5-10.5); Carbon Dioxide 22 mmol/L (22-29); Chloride 102 mmol/L (98-107); Glucose 95 mg/dL (65-115); Phosphorus 3.2 mg/dL (2.5-4.5); Sodium 141 mmol/L (136-145)
[2025-01-17 16:59] LABS: Creatinine Urine, Random 75 mg/dL (28-217); Microalbumin Random Urine 4 ug/dL (0-20)
[2025-01-17 17:01] LABS: Microalbum Creatinine Ratio Ur 53 mg/dL (0-20)
[2025-01-17 17:23] LABS: Anion Gap 21.5 (5-19); Potassium 4.5 mmol/L (3.5-5.1)
== END 2025-01-17 14:29 | disposition home or self-care (01) ==
LOC: LAB 14:32
PROVIDERS: PCP Family Medicine; Visit Provider Internal Medicine Nephrology
DX: N18.4 Chronic kidney disease, stage 4 (severe) (principal)
CPT/HCPCS: 36415; 80069; 82044; 82306; 82310; 83970; 85025

== ENCOUNTER → 2025-01-31 10:13 | Outpatient (BNVA) | payer MEDICARE, OTHER, SELFPAY | PROVIDERS: PCP Family Medicine; Visit Provider Internal Medicine Cardiovascular Disease | DX: I25.10 Atherosclerotic heart disease of native coronary artery without angina pectoris (principal); I48.11 Longstanding persistent atrial fibrillation | CPT/HCPCS: 85610 ==

== ENCOUNTER → 2025-02-14 12:40 | Outpatient (BNVA) | payer MEDICARE, OTHER, SELFPAY | PROVIDERS: PCP Family Medicine; Visit Provider Family Medicine | DX: I10 Essential (primary) hypertension (principal); I50.32 Chronic diastolic (congestive) heart failure; I25.10 Atherosclerotic heart disease of native coronary artery without angina pectoris; I48.11 Longstanding persistent atrial fibrillation; E78.5 Hyperlipidemia, unspecified; E11.9 Type 2 diabetes mellitus without complications; E03.9 Hypothyroidism, unspecified; N18.4 Chronic kidney disease, stage 4 (severe); M19.90 Unspecified osteoarthritis, unspecified site | CPT/HCPCS: 80053; 80061; 82607; 83036; 84443; 84550; 85025 ==

== ENCOUNTER → 2025-02-28 10:27 | Outpatient (BNVA) | payer MEDICARE, OTHER, SELFPAY | PROVIDERS: PCP Family Medicine; Visit Provider Internal Medicine Cardiovascular Disease | DX: I25.10 Atherosclerotic heart disease of native coronary artery without angina pectoris (principal); I48.11 Longstanding persistent atrial fibrillation | CPT/HCPCS: 85610 ==

== ENCOUNTER → 2025-03-28 10:27 | Outpatient (BNVA) | payer MEDICARE, OTHER, SELFPAY | PROVIDERS: PCP Family Medicine; Visit Provider Internal Medicine Cardiovascular Disease | DX: I25.10 Atherosclerotic heart disease of native coronary artery without angina pectoris (principal); I48.11 Longstanding persistent atrial fibrillation | CPT/HCPCS: 85610 ==

== ENCOUNTER → 2025-04-19 13:23 | Outpatient (BNVA) | payer MEDICARE, OTHER, SELFPAY | PROVIDERS: PCP Family Medicine; Visit Provider Family Medicine | DX: E03.9 Hypothyroidism, unspecified (principal) | CPT/HCPCS: 84443 ==

== ENCOUNTER → 2025-05-02 10:58 | Outpatient (BNVA) | payer MEDICARE, OTHER, SELFPAY | PROVIDERS: PCP Family Medicine; Visit Provider Internal Medicine Cardiovascular Disease | DX: I25.10 Atherosclerotic heart disease of native coronary artery without angina pectoris (principal); I48.11 Longstanding persistent atrial fibrillation | CPT/HCPCS: 85610 ==

== ENCOUNTER → 2025-05-12 10:38 | Outpatient (BNVA) | payer MEDICARE, OTHER, SELFPAY | PROVIDERS: PCP Family Medicine; Visit Provider Internal Medicine Cardiovascular Disease | DX: I25.10 Atherosclerotic heart disease of native coronary artery without angina pectoris (principal); I48.11 Longstanding persistent atrial fibrillation | CPT/HCPCS: 85610 ==

== ENCOUNTER → 2025-06-06 09:58 | Outpatient (BNVA) | payer MEDICARE, OTHER, SELFPAY | PROVIDERS: PCP Family Medicine; Visit Provider Internal Medicine Cardiovascular Disease | DX: I25.10 Atherosclerotic heart disease of native coronary artery without angina pectoris (principal); I48.11 Longstanding persistent atrial fibrillation | CPT/HCPCS: 85610 ==

== ENCOUNTER 2025-06-25 14:37 | Emergency (ER) | payer MEDICARE, OTHER, SELFPAY ==
[2025-06-25 14:36] VITALS: BP 166/97; PULSE 87; RESP 16; TEMP 36.5; O2SAT 97; BMI 35.9
--- OUTSIDE RECORDS SUMMARY | 2025-06-25 14:39 | XMS_ITS | Clinical Summary ---
Author Organization [facility] [employer] [facility], [facility] Address [address] [place] [address] Phone Care Team Providers Care Associate Partner Name Role Phone Ángel Flores DO Primary Care Provider [phone] Allergies Active Allergy Reactions Criticality Noted Date Comments Amlodipine 05/08/2021 Other Reaction(s): Unknown Aspirin Medium 05/08/2021 Other Reaction(s): Hallucinations Colesevelam 05/08/2021 Other Reaction(s): Unknown Yzp-Qfdm-Thwj Buffered 10/13/2019 Fentanyl 10/13/2019 Indomethacin 05/08/2021 Other Reaction(s): Unknown Lisinopril 10/18/2020 cough Meperidine 05/08/2021 Other Reaction(s): Unknown Udref-4-Gvsx Ethyl Esters (Fish) Other (see comments) 05/08/2021 Other Reaction(s): Unknown Statins 10/13/2019 Muscle pain Medications * This document contains information received from the source organization and may not represent a complete record from that organization. warfarin (COUMADIN) 1 MG tablet Take 1 mg by mouth 1 (one) time each day Taking 2 mg for 3 days and 1 mg on fourth day and follow sequence. Active insulin detemir (LEVEMIR) 100 UNIT/ML injection Inject 24 Units under the skin every night Depending on the BS Active fenofibrate (TRICOR) 145 MG tablet Take 145 mg by mouth 1 (one) time each day Active nateglinide (STARLIX) 120 MG tablet Take 120 mg by mouth 3 times a day Active metoprolol tartrate (LOPRESSOR) 25 MG tablet Take 50 mg by mouth in the morning and 50 mg in the evening. Active dilTIAZem CD (CARDIZEM CD) 240 MG 24 hr capsule Take 240 mg by mouth 1 (one) time each day Active Cholecalciferol (Vitamin D-3) 25 MCG (1000 UT) capsule Take 1 tablet by mouth 1 (one) time each day Active losartan (COZAAR) 50 MG tablet Take 25 mg by mouth 1 (one) time each day Active levothyroxine (SYNTHROID, LEVOTHROID) 50 MCG tablet Take 75 mcg by mouth 1 (one) time each day 3 Active hydroCHLOROthia zide 25 MG tablet Take 25 mg by mouth 1 (one) time each day Active Multiple Vitamins-Minera ls (Centrum Silver Adult 50+) tablet Take 1 tablet by mouth in the morning. Active Ascorbic Acid (vitamin C) 500 MG tablet Take 500 mg by mouth 1 (one) time each day Active dorzolamide-mily olol (COSOPT) 2-0.5 % ophthalmic solution Administer 1 drop into the right eye in the morning and 1 drop in the evening. 4 Active amiodarone (PACERONE) 200 MG tablet Take 200 mg by mouth 1 (one) time each day 4 Active methenamine (HIPREX) 1 g tabletIndicatio ns:Chronic kidney disease stage 4 (HCC) TAKE 1 TABLET BY MOUTH EVERY DAY 90 tablet 2 5 Active Active Problems Problem Noted Date Diagnosed Date Congestive heart failure 11/12/2023 Coronary arteriosclerosis 11/12/2023 Cardiac pacemaker in situ 11/12/2023 Chronic kidney disease stage 3B 10/17/2019 Type 2 diabetes mellitus wit h other diabetic kidney complication 10/17/2019 Essential (primary) hypertension 10/17/2019 Encounters Date Type Department Care Team Description 06/14/2025 Patient Outreach [facility] [address] [place] [address] Imani Sinha from Last 3 Months Family History Medical History Relation Comments Diabetes Child Heart disease Child Hypertension Child Kidney disease Child Stroke Child Cancer Father Dementia Father Heart disease Father Hypertension Father Stroke Father Heart disease Mother Hypertension Mother Cancer Sibling Dementia Sibling Diabetes Sibling Heart disease Sibling Hypertension Sibling Relation Status Comments Child Father Mother Sibling Social History Tobacco Use Types Packs/Day Years Used Date Smoking Tobacco: Former Smokeless Tobacco: Never Tobacco Cessation:Counseling Given: Not Answered Alcohol Use Standard Drinks/Week Comments Never 0 (1 standard drink = 0.6 oz pur e alcohol) AUDIT-C Answer Date Recorded Q1: How often do you have a drink containing alc ohol? Never 10/13/2019 Average Number of Drinks Not on file 020 Frequency of Binge Drinking Not on file 09/16 Comments No Sex and Gender Information Value Date Recorded Sex Assigned at Not on file Legal Sex Female 1:17 PM EST Gender Identity Not on file Sexual Orientation Not on file Last Filed Vital Signs Vital Sign Reading Time Taken Comments Blood Pressure 122/64 01/24/2025 10:33 AM CDT Pulse 64 01/24/2025 10:33 AM CDT Temperature 36.3 C (97.3 F) 10/18/2020 9:12 AM HELPER SHEAR OPERATOR Respiratory Rate - - Oxygen Saturation 96% 07/26/2024 9:50 AM HELPER SHEAR OPERATOR Inhaled Oxygen Concentration - - Weight 90.1 kg (198 lb 9.6 oz) 01/24/2025 10:33 AM CDT Height 162.6 cm (5' 4 ) 01/24/2025 10:33 AM CDT Body Mass Index 34.09 01/24/2025 10:33 AM CDT Plan of Treatment Upcoming Encounters Date Type Department Care Team (Late st Contact Info) Description 07/26/2025 10:30 AM HELPER SHEAR OPERATOR Office Visit [facility], [facility] [address] [place] [address] Shadia Mays NP [address] [phone] Health Maintenance Due Date Last Done Comments Pneumococcal Vaccine: 50+ Years (1 of 2 - PCV) 1959 Diabetes: Ophthalmology Exam 10/17/2019 Diabetes: Pedal Pulse Checked 10/17/2019 Diabetes: Sensory Foot Exam 10/17/2019 Diabetes: Visual Foot Exam 10/17/2019 Diabetes: Hemoglobin A1C 01/10/2021 021, 06/02/2019 Influenza Vaccine (#1) 2025 Hepatitis B Vaccine Aged Out No longe r eligible based on patient's age to complete this topic Procedures Procedure Name Priority Date/Time Associated Diagnosis Comments HEMOGLOBIN A1C (EXTERNAL RESULT ENTRY) Routine 10/12/2020 7:49 AM HELPER SHEAR OPERATOR from Last 3 Months or Most Recently Relevant to Health Maintenance Results * Hemoglobin A1C (10/12/2020 7:49 AM HELPER SHEAR OPERATOR) Hemoglobin A1C 8.2 Blood specimen (specimen) Venous blood / Unknown 10/12/2020 7:49 AM HELPER SHEAR OPERATOR Ángel Flores DO LAB BLOOD ORDERABLES Final Resul t from Last 3 Months or Most Recently Relevant to Health Maintenance Insurance Medicare [employer] Care Teams Associate Partner Relationship Specialty Start Date End Date Ángel Flores DO [address] [place] [phone] PCP - General Family Medicine 10/04/19
--- OUTSIDE RECORDS SUMMARY | 2025-06-25 14:39 | XMS_ITS | Data Portability ---
Author Organization [facility], [facility] Address [address] [place] [phone] Assessment No assessment recorded. Plan of Treatment Reminders Order Date Submit Date Provider Last Modified By Organization Details Last Modified Time Details Appointments None record ed. Lab None record ed. Referral None record ed. Procedures None record ed. Surgeries None record ed. Imaging None record ed. Medication Orders None record ed. Patient TargetsNo targets recorded. Patient Instructions Encounter Date Encounter Id Patient Instructions Last Modified By Organization Details Last Modified Time 04/25/2025 [id number] New admit to [facility] . Admitted from home due to inability to care for self. Does follow with Dr. Lal at cardiology, he follows INR. Does have BLE edema, will schedule hctz 25mg at hs. Schedule labs. Mood good, adjusting to facility well. [email or web address] Not available 04/27/2025 12:30:21 Reason for Referral None Reported. Results Created Date Observation Date Name Description Value Unit Range Abnormal Flag Note LastModifiedBy Organization Detail LastModifiedTime 06/24/20 25 06/23/2025 imagi ng/di agnos tic resul t No observ ation record ed. [email or web address] [place] [address], [place], [address], 06/24/2025 16:16:29 Result Notes None recorded. Problems Name Problem SNOMED Code Status Onset Date Resolution Date Notes Provider Name and Address Organization Details Recorded Time Hyperglyce rasta due to type 2 diabetes mellitus 1270445984368 09 Active 2024 [facility]UD[facility]ine [facility] 12:27:33 Hyperlipid emia 88237952 Active 2024 [facility] 12:27:34 Chronic kidney disease stage 4 284411710 Active 2024 PRUDENCE DAVID [facility] 12:27:35 Cardiac pacemaker in situ 028630808 Active 2024 PRUDENCE DAVID [facility] 5 12:27:36 Essential hypertensi on 96320504 Active 2024 PRUDENCECHINMAY DAVID [facility] 5 12:27:38 Congestive heart failure 56239137 Active 2024 PRUDENCE DAVID [facility] 5 12:27:39 Coronary arterioscl erosis 99131858 Active 2024 PRUDENCE DAVID [facility] 5 12:27:40 Chronic atrial fibrillati on 455019089 Active 2024 PRUDENCECHINMAY DAVID [facility] 12:27:42 Problem Notes None recorded. Medical Equipment None Reported. Medications Name Sig Start Date Stop Date Status Note LastModified by Organization Details LastModified Time losartan 50 mg tablet TAKE 1 TABLET BY MOUTH EVERY DAY AT 8AM active Not Available Not Available No t Available amoxicillin 500 mg capsule TAKE 1 CAPSULE BY MOUTH THREE TIMES A DAY 06/14 completed Not Available Not Available Not Available latanoprost 0.005 % eye drops INSTILL 1 DROP INTO RIGHT EYE EVERY NIGHT AT BEDTIME active Not Available Not Available No t Available nateglinide 120 mg tablet TAKE 1 TABLET BY MOUTH THREE TIMES DAILY, AT 8AM, NOON, AND 8PM active Not Available Not Available No t Available fluconazole 100 mg tablet TAKE 1 TABLET BY MOUTH EVERY DAY FOR TINEA active Not Available Not Available No t Available amiodarone 200 mg tablet TAKE 1 TABLET BY MOUTH EVERY DAY active Not Available Not Available No t Available diltiazem CD 240 mg capsule,ext ended release 24 hr TAKE 1 CAPSULE BY MOUTH IN THE MORNING active Not Available Not Available No t Available levothyroxi ne 75 mcg tablet 75 MCG ORALLY DAILY TAKE 1 TABLET BY MOUTH DAILY active Not Available Not Available No t Available levothyroxi ne 100 mcg tablet TAKE 1 TABLET BY MOUTH EVERY DAY active Not Available Not Available No t Available levothyroxi ne 88 mcg tablet TAKE 1 TABLET BY MOUTH EVERY DAY active Not Available Not Available No t Available methenamine hippurate 1 gram tablet TAKE 1 TABLET BY MOUTH EVERY DAY active Not Available Not Available No t Available metoprolol tartrate 50 mg tablet TAKE 1 TABLET BY MOUTH TWICE A DAY active Not Available Not Available No t Available nystatin-tr iamcinolone 100,000 unit/g-0.1 % topical cream APPLY TOPICALLY TWICE A DAY active Not Available Not Available No t Available dorzolamide 22.3 mg-timolol 6.8 mg/mL eye drops INSTILL 1 DROP INTO RIGHT EYE TWICE A DAY active Not Available Not Available No t Available hydrochloro thiazide 25 mg tablet TAKE 1 TABLET BY MOUTH DAILY FOR 1 WEEK FOR SWELLING THEN 1 TABLET DAILY NEEDED active Not Available Not Available No t Available warfarin 1 mg tablet TAKE 2 TABLETS BY MOUTH FOR 5 DAYS AND 1 TAB 2 DAYS ON AND FRI SUBJECT TO CHANGE active Not Available Not Available No t Available nitrofurant oin monohydrate /macrocryst als 100 mg capsule TAKE 1 CAPSULE BY MOUTH TWICE DAILY FOR 7 DAYS 06/14 completed Not Available Not Available Not Available GaviLyte-G 236 gram-22.74 gram-6.74 gram-5.86 gram oral solution USE DIRECTED active Not Available Not Available No t Available Vitals None Recorded Social History None recorded. Functional Status None recorded. Mental Status None recorded. Family History Nothing Reported. Medical History No medical history recorded. Gynecological HistoryNo gynecological history recorded. Obstetrics History GPAL:G 0 P 0 0 0 0 Past Encounters Encounter ID Performer Location Encounter Start Date Encounter Closed Date Diagnosis/Indication Diagnosis SNOMED-CT Code Diagnosis ICD10 Code Diagnosis IMO Codes Diagnosis Note [id number] Jose L Valentin DO [facility] ([facility]) [address] [place] [phone] 04/27/2025 10:48:24 05/02/2025 16:16:19 Hyperglycemia due to type 2 diabetes mellitus 3249016831 81535 E11.65 26686997 Hyperlipidemia 27550002 E78.49 0629452 Chronic ki dney disease stage 4 177730832 N18.4 119146 Cardiac pa jl in situ 091425014 Z95.0 437130 Essential hypertension 22670830 I10 43715 Congestive heart failure 34289359 I50.9 0107657435 Coronary arteriosclerosis 78048032 I25.10 06674339 Chronic at rial fibrillation 906550135 I48.20 004095 Health Concerns Section Related Observation LastModified by Organization Detai ls LastModified Time None Recorded Concern Status LastModified by Organization Details LastModified Time None Recorded Advance Directives Directive None Recorded Payers Insurance Date Sequence Insurance Name Policy Number Policy Piper Covered Member ID Piper Member ID Guarantor Name 05/18/2025 2 UNSPECIFIED REMIT PAYOR Cledith N Hise 06/23/2025 1 [place]IC[place] Cledith N Hise [id number] Cledith N Hise 06/23/2025 [place] - [facility] (MEDICARE) Cledith N Hise [id number] Cledith N Hise 04/27/2025 1 *SELF PAY* Cl amber N Hise 06/03/2025 2 UNSPECIFIED REMIT PAYOR Cledith N Hise Notes Date Note Type Note Provider Name and Address Organization Details Recorded Time 04/25/2025 text/html DiabetesReported by PatientHPIFor duration, patient reportschronic. For control, patient reportsusually well controlled. For compliance, patient reportscompliant with medications.ROS as noted in the HPI [facility] unable to care for self at home. Jose L Valentin, DO [address] [place] [address], [phone], [facility], L[facility]rick[facility] 05/01/2025 15:19:04 06/23/2025 text/html DiabetesReported by PatientHPIFor duration, patient reportschronic. For control, patient reportsusually well controlled. For compliance, patient reportscompliant with medications.ROS as noted in the HPI c/o back pain for the last 3-4 days. Not Available Not Available Not Available OBGyn Episode No OBEpisode recorded.
--- OUTSIDE RECORDS SUMMARY | 2025-06-25 14:39 | XMS_ITS | Encounter Summary ---
Author Organization [facility] Address [address] [facility] [address] [place] [address] Phone Care Team Providers Care Machine Operator Slitter Technician Name Role Phone Ángel Flores DO Primary Care Provider Encounter Details Date Type Department Care Team (Late st Contact Info) Description 08/31/2019 Orders Only [facility] [address] [facility] [address] [place] [address] Decreased renal function Social History Tobacco Use Types Packs/Day Years Used Date Smoking Tobacco: Never Assessed Comments Unknown Sex and Gender Information Value Date Recorded Sex Assigned at Not on file Legal Sex Female 1:17 PM EST Gender Identity Not on file Sexual Orientation Not on file documented as of this encounter Plan of Treatment Upcoming Encounters Date Type Department Care Team (Late st Contact Info) Description 07/26/2025 10:30 AM DISTRIBUTION CENTER SUPERVISOR Office Visit [facility] [address] [place] [id number] Shadia Mays NP [address] [facility] [address] [place] [address] documented as of this encounter Visit Diagnoses Diagnosis Decreased renal function documented in this encounter Care Teams Machine Operator Slitter Technician Relationship Specialty Start Date End Date Ángel Flores DO [address] [place] [id number] PCP - General Family Medicine 10/04/19 documented as of this encounter
--- NOTE | 2025-06-25 14:54 | ED_ITS ---
HPI - Extremity Problem 2 General: Chief complaint: Extremity Problem,Nontraumatic Stated complaint: SWELLING IN FEET/ANKLES History of Present Illness: 84-year-old female presents emergency ro om with increased swelling in her legs. She has known chronic kidney disease sees not on any diuretics. She was recently started on baclofen which seems to have given her some trouble she is complaining of mid low back pain no recent trauma. No fever sweats or chills. She denies dysuria urgency or frequency no chest pain. Her primary care had called in some baclofen which states feel has caused her some increased confusion so she has only taken 1 dose. Associated symptoms: Deny chest pain, fever(s) or rash Related Data Home Medications ?Medication ?Instructions ?Recorded ?Confirmed cholecalciferol (vitamin D3) 25 1,000 unit PO DAILY@08 00 05/01/20 06/25/25 mcg (1,000 unit) capsule multivitamin 1 tab PO DAILY 04/21/2306/15 dorzolamide 22.3 mg-timolol 6.8 1 drp ophthalmic (eye) BID 05/05/24 06/25/25 mg/mL eye drops methenamine hippurate 1 gram tablet 1 g PO DAILY 05/0506/25/25 Previous Rx's ?Medication ?Instructions ?Recorded allopurinol 100 mg tablet 100 mg PO DAILY@0800 #90 tab s 10/13/22 fenofibrate nanocrystallized 145 145 mg PO DAILY@0800 #90 tabs 09/14/24 mg tablet metoprolol tartrate 50 mg tablet 50 mg PO BID #180 tab s 12/20/24 diltiazem HCl 240 mg 240 mg PO QAM #90 caps 12/23 capsule,extended release 24 hr (Cardizem CD) nystatin-triamcinolone 100,000 1 applic topical BID #6 0 grams 02/02/25 unit/g-0.1 % topical cream nateglinide 120 mg tablet See Rx Instructions .Route 0 02/24/25 .COMPLEX #270 tabs amiodarone 200 mg tablet See Rx Instructions .Route 0 03/25/25 .COMPLEX #90 tabs warfarin 1 mg tablet See Rx Instructions .Route 0 04/15/25 .COMPLEX #180 tabs levothyroxine 100 mcg tablet 100 mcg PO DAILY #90 tabs 06/12/25 cephalexin 500 mg capsule 500 mg PO TID 7 days #21 cap s 06/25/25 furosemide 20 mg tablet (Lasix) 20 mg PO DAILY #14 tab s 06/25/25 hydrocodone 5 mg-acetaminophen 325 1 tab PO Q6H PRN pa in #15 tabs 06/25/25 mg tablet losartan 50 mg tablet 25 mg (1/2 x 50 mg) PO 1XD # 30 tabs 06/25/25 tizanidine 2 mg capsule 2 mg PO Q8H PRN muscle spast icity 06/25/25 #14 caps Allergies Allergy/AdvReac Type Severity Reaction Status Date / Time aspirin (From Excedrin Allergy Intermediate Hallucinati Verified 02/14/25 12:07 Migraine) ons caffeine (From Excedrin Allergy Intermediate Hallucinati Verified 02/14/25 12:07 Migraine) ons meperidine (From Demerol) Allergy Intermediate Unknown Verified 02/14/25 12:07 colesevelam (From WelChol) Allergy Mild ADR-Nausea Verified 02/14/25 12:07 indomethacin Allergy Mild ADR-Dizzine Verified 02/14/25 12:07 ss amlodipine Allergy Unknown Unknown Verified 02/14/25 12:07 fentanyl Allergy Unknown ADR-Vomitin Verified 02/14/25 12:07 g omega-3 acid ethyl esters Allergy Unknown Unknown Verified 02/14/25 12:07 (From Lovaza) Aokjrkv-FCS-GqK Reductase Allergy Unknown ADR-Cramping Verified 02/14/25 12:07 Inhibitor (Hkotwke-Rnf-Wct of the Reductase Inhibitor) Muscles Review of Systems 2 Const: Denies: fever(s) or chills Card: Denies: chest pain Resp: Denies: dyspnea GI: Denies: abdominal pain : Denies: dysuria, urinary frequency or urinary urgency Musc: Reports: back pain; Denies: neck pain Skin/Breast: Denies: rash PFSH ED 2 PFSH: Medical History Diabetes mellitus Hyperlipidemia CKD (chronic kidney disease) stage 4, GFR 15-29 ml/min Pacemaker HTN (hypertension) CHF (congestive heart failure) Coronary artery disease Surgical History S/P hemorrhoidectomy S/P hysterectomy S/P lens implant Family History Father Cancer Colon CA Heart disease Stroke Sister Cancer Breast CA Heart disease Hypertension Thyroid disease Diabetes Mother Heart disease Hypertension Thyroid disease Other CAD (coronary artery disease) Gout Social History Smoking and tobacco/nicotine status: never used tobacco/nicotine Physical Exam 2 Const: GENERAL APPEARANCE: cooperative ORIENTATION/CONSCIOUSNESS: Yes awake, Yes oriented to person, Yes oriented to place and Yes oriented to time HENMT: COMMON NORMALS: normocephalic, atraumatic and hearing grossly normal bilaterally HEAD & SCALP: normocephalic and atraumatic Resp: COMMON NORMALS: normal respiratory effort, No retractions, No use of accessory muscles and clear to auscultation bilaterally AUSCULTATION: clear to auscultation bilaterally Cardio: COMMON NORMALS: regular rate, regular rhythm and No murmurs present (Cardio) RATE: regular rate RHYTHM: regular rhythm GI: COMMON NORMALS: Soft to palpation and No hepatosplenomegaly present A USCULTATION: Yes normoactive bowel sounds PALPATION: Yes Soft to palpation, No Tenderness to palpation present (GI), No Guarding due to palpation present (GI) and Yes No hepatosplenomegaly present Extremity: OTHER: 2+ edema lower extremities bilaterally Neuro: SENSORIUM/ORIENTATION: Yes oriented to person, Yes oriented to place and Yes oriented to time Skin: COMMON NORMALS: no rashes or lesions noted GENERAL SKIN EXAM: no rashes or lesions noted Course 2 Vital Signs: Vital signs: Vital Signs Temperature 97.7 F 06/25/25 14:36 Pulse Rate 64 06/25/25 17:20 Respiratory Rate 17 06/25/25 17:20 Blood Pressure 134/88 06/25/25 17:20 Pulse Oximetry 95 06/25/25 17:20 Oxygen Delivery Me thod Room Air 06/25/25 16:08 MDM - Extremity (Nontraumatic) Medical Decision Making Patient has significant edema lower extremities. UA shows mild cystitis though she is asymptomatic of it. Will have her hold her hydrochlorothiazide decrease her losartan and have her use Lasix 20 mg daily for the next 3 days then reassess with her primary care doctor at the alf. Attempted to get some of the fluid out of her legs for comfort. She appears to have a compression fracture on her L1 and T12 vertebrae. Will discharge her back to nursing with pain medications set her up for referral to orthopedic spine surgery for evaluation for kyphoplasty daughter is not sure they would necessarily want to go through that but is willing to look at the op possibility. Radiology is to over read the films yet. Finally for her cystitis she is given dose Rocephin discharged back to the alf on oral antibiotics. Medical Records I reviewed the patient's medical records. Lab Data I reviewed the patient's lab results. 06/25/25 14:45 06/25/25 14:45 Radiology Impressions Lumbar Spine X-Ray 06/25/25 16:46 IMPRESSION: No definite acute fracture, subluxation, dislocation. Chronic findings as above. Laboratory Results WBC 9.22 10^3/uL (3.29-11.43) 06/25/25 14:45 RBC 3.72 10^6/uL (3.85-5.65) L 06/25/25 14:45 Hgb 11.90 g/dL (11.27-16.99) 06/25/25 14:45 Hct 41.1 % (36-47) 06/25/25 14:45 MCV 110.5 fl (85-98) H 06/25/25 14:45 MCH 32.0 pg (27-33) 06/25/25 14:45 MCHC 29.0 g/dL (30-55) L 06/25/25 14:45 RDW 13.7 % (12.1-15.1) 06/25/25 14:45 Plt Count 343 10^3/cmm (157-399) 06/25/25 14:45 MPV 9.2 fL (7.4-10.4) 06/25/25 14:45 Neut % (Auto) 74.0 % 06/25/25 14:45 Lymph % (Auto) 12.8 % 06/25/25 14:45 [place] % (Auto) 10.0 % 06/25/25 14:45 Eos % (Auto) 1.8 % 06/25/25 14:45 Baso % (Auto) 0.9 % 06/25/25 14:45 Neut # (Auto) 6.82 10^3/uL (1.8-7.7) 06/25/25 14:45 Lymph # (Auto) 1.2 10^3/uL (0.8-4.8) 06/25/25 14:45 [place] # (Auto) 0.9 10^3/uL (0.2-0.9) 06/25/25 14:45 Eos # (Auto) 0.2 10^3/uL (0.0-0.8) 06/25/25 14:45 Baso # (Auto) 0.1 10^3/uL (0.0-0.1) 06/25/25 14:45 Nucleated RBC % (auto) 0 % 06/25/25 14:45 Nucleated RBCs # 0.0 /100WBC 06/25/25 14:45 Sodium 136 mmol/L (136-145) 06/25/25 14:45 Potassium 4.3 mmol/L (3.5-5.1) 06/25/25 14:45 Chloride 101 mmol/L (98-107) 06/25/25 14:45 Carbon Dioxide 19 mmol/L (22-29) L 06/25/25 14:45 Anion Gap 20.3 (5-19) H 06/25/25 14:45 BUN 38 mg/dL (8-23) H 06/25/25 14:45 Creatinine 2.0 mg/dL (0.5-0.9) H 06/25/25 14:45 GFR Calculation Not Reportable 06/25/25 14:45 Glucose 259 mg/dL (65-115) H 06/25/25 14:45 Calculated Osmolality 300 mOsm/kg (285-295) H 06/25/25 14:45 Calcium 9.0 mg/dL (8.5-10.5) 06/25/25 14:45 Total Bilirubin 0.4 mg/dL (0.15-1.2) 06/25/25 14:45 AST 25 U/L (0-32) 06/25/25 14:45 ALT 15 U/L (0-33) 06/25/25 14:45 Alkaline Phosphatase 114 U/L (35-105) H 06/25/25 14:45 Total Protein 6.7 g/dL (6.6-8.7) 06/25/25 14:45 Albumin 3.4 g/dL (3.5-5.2) L 06/25/25 14:45 Globulin 3.3 g/dL (1.3-4.6) 06/25/25 14:45 Urine Color Yellow (Yellow) 06/25/25 15:34 Urine Appearance Clear (CLEAR) 06/25/25 15:34 Urine pH 5 (5-7) 06/25/25 15:34 Ur Specific [place] 1.015 (1.005-1.030) 06/25/25 15:34 Urine Protein 1+ (Negative) H 06/25/25 15:34 Urine Glucose (UA) Trace (Normal) H 06/25/25 15:34 Urine Ketones Negative (Negative) 06/25/25 15:34 Urine Blood 2+ (Negative) H 06/25/25 15:34 Urine Nitrate Negative (Negative) 06/25/25 15:34 Urine Bilirubin Neg (Negative) 06/25/25 15:34 Urine Urobilinogen Neg mg/dL (Negative) 06/25/25 15:34 Ur Leukocyte Esterase 2+ (Negative) H 06/25/25 15:34 Urine RBC 0-4 /hpf (0-2) H 06/25/25 15:34 Urine WBC 25-40 /hpf (0-5) H 06/25/25 15:34 Ur Squamous Epith Cells 0-4 /hpf (0-5) H 06/25/25 15:34 Amorphous Sediment Not Reportable 06/25/25 15:34 Urine Bacteria 2+ /hpf (NONE) H 06/25/25 15:34 XR interpretation done by ED provider, pending radiology final review ED provider radiology interpretation(s): Lumbar spine. Loss of vertebral body height at T12 and L1 suspicious for compression fractures. . Compared to film from April 2006. Discharge Plan Discharge Patient Disposition: Home Clinical Impression: Compression fracture of vertebral column, CKD (chronic kidney disease) stage 4, GFR 15-29 ml/min, Cystitis HTN (hypertension) Qualifiers: Hypertension type: essential hypertension Qualified Code(s): I10 - Essential (primary) hypertension Atrial fibrillation Qualifiers: Atrial fibrillation type: longstanding persistent Qualified Code(s): I48.11 - Longstanding persistent atrial fibrillation Condition: Stable Prescriptions: New cephalexin 500 mg capsule 500 mg PO TID 7 Days Qty: 21 0RF furosemide [Lasix] 20 mg tablet 20 mg PO DAILY Qty: 14 0RF tizanidine 2 mg capsule 2 mg PO Q8H PRN (Reason: muscle spasticity) Qty: 14 0RF hydrocodone-acetaminophen 5-325 mg tablet 1 tab PO Q6H PRN (Reason: pain) Qty: 15 0RF Changed losartan 50 mg tablet 25 mg PO 1XD Qty: 30 0RF Dose Instruction: TAKE 1 TABLET BY MOUTH EVERY DAY AT 8AM Rx Instructions: TAKE 1 TABLET BY MOUTH EVERY DAY AT 8AM Discontinued hydrochlorothiazide 25 mg tablet See Rx Instructions .ROUTE .COMPLEX Qty: 90 3RF Dose Instruction: TAKE 1 TABLET BY MOUTH DAILY FOR 1 WEEK FOR SWELLING THEN 1 TABLET DAILY NEEDED Rx Instructions: TAKE 1 TABLET BY MOUTH DAILY FOR 1 WEEK FOR SWELLING THEN 1 TABLET DAILY NEEDED baclofen 10 mg tablet 10 mg PO DAILY No Action cholecalciferol (vitamin D3) 25 mcg (1,000 unit) capsule 1,000 unit PO DAILY@0800 diltiazem HCl [Cardizem CD] 240 mg capsule,extended release 24hr 240 mg PO QAM Qty: 90 3RF nystatin-triamcinolone 100,000-0.1 unit/g-% cream 1 applic topical BID Qty: 60 1RF multivitamin Tablet 1 tab PO DAILY allopurinol 100 mg tablet 100 mg PO DAILY@0800 Qty: 90 3RF fenofibrate nanocrystallized 145 mg tablet 145 mg PO DAILY@0800 Qty: 90 3RF metoprolol tartrate 50 mg tablet 50 mg PO BID Qty: 180 2RF nateglinide 120 mg tablet See Rx Instructions .ROUTE .COMPLEX Qty: 270 3RF Dose Instruction: TAKE 1 TABLET BY MOUTH THREE TIMES DAILY, AT 8AM, NOON, AND 8PM Rx Instructions: TAKE 1 TABLET BY MOUTH THREE TIMES DAILY, AT 8AM, NOON, AND 8PM amiodarone 200 mg tablet See Rx Instructions .ROUTE .COMPLEX Qty: 90 3RF Dose Instruction: TAKE 1 TABLET BY MOUTH EVERY DAY Rx Instructions: TAKE 1 TABLET BY MOUTH EVERY DAY warfarin 1 mg tablet See Rx Instructions .ROUTE .COMPLEX Qty: 180 0RF Protocol: Dose Management Condition: Friday Dose/Route: 1 mg Instruction: 1 x 1 mg tablet Condition: Friday Dose/Route: 1 mg Instruction: 1 x 1 mg tablet Condition: Friday Dose/Route: 2 mg Instruction: 2 x 1 mg tablets Condition: Friday Dose/Route: 1 mg Instruction: 1 x 1 mg tablet Condition: Dose/Route: 2 mg Instruction: 2 x 1 mg tablets Condition: Friday Dose/Route: 1 mg Instruction: 1 x 1 mg tablet Condition: Friday Dose/Route: 1 mg Instruction: 1 x 1 mg tablet Protocol Text: Adjustment Start Date: Friday06/06/25 INR Value: 37.4 Seconds INR Date: 06/06/25 Recheck Date: 07/01/25 Dose Instruction: TAKE 2 TABLETS BY MOUTH EVERY DAY Rx Instructions: TAKE 2 TABLETS BY MOUTH 5 DAYS AND 1MG 2 DAYS ON AND FRI SUBJECT TO CHANGE levothyroxine 100 mcg tablet 100 mcg PO DAILY Qty: 90 1RF Rx Instructions: TAKE 1 TABLET BY MOUTH DAILY methenamine hippurate 1 gram tablet 1 g PO DAILY dorzolamide-timolol 22.3-6.8 mg/mL drops 1 drp ophthalmic (eye) BID Rx Instructions: RT EYE Discharge Orders: Discharge ED (Routine); Ordered 06/25/25 Ordered By: Krzysztof Mcconnell Referrals: Ángel Flores DO [Primary Care Provider, Family Practice] Patient Instructions: Opioid Safety, Pain Management, Patient Portal & Prudencio Instructions Activity Restrictions/Additional Instructions: [facility]. It is very important that you follow up as instructed or that you return to the Emergency Department should you have concerns or if your condition changes or worsens in any way. Emergency department visits are focused on emergent conditions, in some cases you may require further evaluation on an outpatient basis. You are seen emergency room with back pain. X-ray of back appears to be a compression fracture at T12. Will set you up for an outpatient further imaging and referral to the orthopedic surgeon for consideration of kyphoplasty. This is where bone cement is injected into the vertebral body to stabilize the fracture. This procedure as an outpatient. You are also noted to have a bladder infection you were given an initial dose of IV antibiotics and discharged home with oral antibiotic. Your kidney function is slightly improved from where it has been in the past. Recommend you hold your hydrochlorothiazide decrease Lasix to 25 mg daily and for the next 3 days take Lasix 20 mg daily your doctor can further adjust this based on the results and monitoring of your kidney function. (Please note that included in your discharge packet is information concerning opioid safety and pain management. This information is given to all patients were discharged from the ER regardless of their discharge diagnosis or the medicines they usually take or are prescribed.) Print Language: Frisian Coding Level of Care Code ED Interventional Cardiologist for Mirella Rose
[2025-06-25 15:10] LABS: Hematocrit 41.1 % (36-47); Hemoglobin 11.90 g/dL (11.27-16.99); Mean Corpuscular HGB Conc 29.0 g/dL (30-55); Mean Corpuscular Hemoglobin 32.0 pg (27-33); Mean Corpuscular Volume 110.5 fl (85-98); Nucleated Red Blood Cells % 0 %; Platelet Count 343 10^3/cmm (157-399); Red Blood Count 3.72 10^6/uL (3.85-5.65); White Blood Count 9.22 10^3/uL (3.29-11.43)
[2025-06-25 15:20] LABS: Alanine Aminotransferase 15 U/L (0-33); Albumin Level 3.4 g/dL (3.5-5.2); Alkaline Phosphatase 114 U/L (35-105); Aspartate Amino Transferase 25 U/L (0-32); Blood Urea Nitrogen 38 mg/dL (8-23); Calcium 9.0 mg/dL (8.5-10.5); Carbon Dioxide 19 mmol/L (22-29); Chloride 101 mmol/L (98-107); Creatinine Clr Calc Pharmacy 23.3836; Globulin 3.3 g/dL (1.3-4.6); Glucose 259 mg/dL (65-115); Osmolality Calculated 300 mOsm/kg (285-295); Sodium 136 mmol/L (136-145); Total Protein 6.7 g/dL (6.6-8.7)
[2025-06-25 15:21] LABS: Anion Gap 20.3 (5-19); Potassium 4.3 mmol/L (3.5-5.1)
[2025-06-25 15:48] LABS: Add Urine Microscopic? YES; Glucose Urine UA Trace (Normal); Nitrate Urine Negative (Negative); Specific Gravity, Urine 1.015 (1.005-1.030); UA Manual Slide Review YES
[2025-06-25 16:08] VITALS: BP 168/92; PULSE 81; RESP 27; O2SAT 96
[2025-06-25 16:45] VITALS: RESP 22
[2025-06-25] MEDS: morphine 4 mg/mL SDV 1 mL 2 MG IVP (16:45)
--- NOTE | 2025-06-25 16:46 | XRR_ITS ---
PROCEDURE INFORMATION: Exam: XR Lumbosacral Spine Exam date and time: 06/25/2025 4:53 PM Age: 84 years old Clinical indication: Low back pain TECHNIQUE: Imaging protocol: Radiologic exam of the lumbosacral spine. Views: 2 or 3 views. COMPARISON: CT abdomen pelvis wo con [id number] 07/28/2022 4:09 PM FINDINGS: Bones/joints: Moderate degenerative changes of the lumbar vertebrae with multilevel endplate spurring and disc space narrowing. Soft tissues: Unremarkable. Vasculature: Aortic atherosclerosis. XR/XR lumbar spine 2-3V* [id number] IMPRESSION: No definite acute fracture, subluxation, dislocation. Chronic findings as above.
[2025-06-25] MEDS: FUROsemide 10 mg/mL SDV 4mL 40 MG IVP (16:47)
[2025-06-25] MEDS: cefTRIAXone 1,000 mg SDV 1000 MG IVP (16:47)
[2025-06-25 16:48] VITALS: BP 144/82; PULSE 80; RESP 23; O2SAT 96
[2025-06-25 17:20] VITALS: BP 134/88; PULSE 64; RESP 17; O2SAT 95
--- NOTE | 2025-06-28 15:56 | PC.NURSE ---
Ortho referral sent.
== END 2025-06-25 17:30 | disposition home or self-care (01) ==
PROVIDERS: Emergency Provider Family Medicine; PCP Family Medicine
DX: M48.50XA Collapsed vertebra, not elsewhere classified, site unspecified, initial encounter for fracture (principal); N30.90 Cystitis, unspecified without hematuria; I12.9 Hypertensive chronic kidney disease with stage 1 through stage 4 chronic kidney disease, or unspecified chronic kidney disease; N18.4 Chronic kidney disease, stage 4 (severe); I48.11 Longstanding persistent atrial fibrillation; Z79.01 Long term (current) use of anticoagulants
CPT/HCPCS: 36415; 72100; 80053; 81001; 85025; 87077; 87086; 87186; 96374; 96375; 99284; J0696; J1938; J2270

== ENCOUNTER → 2025-07-01 13:10 | Outpatient (BNVA) | payer MEDICARE, OTHER, SELFPAY | PROVIDERS: PCP Family Medicine; Visit Provider Internal Medicine Cardiovascular Disease | DX: I25.10 Atherosclerotic heart disease of native coronary artery without angina pectoris (principal); I48.11 Longstanding persistent atrial fibrillation | CPT/HCPCS: 85610 ==

== ENCOUNTER 2025-07-13 08:29 | Emergency (ER) | payer MEDICARE, OTHER, SELFPAY ==
[2025-07-13 08:30] VITALS: BP 153/69; PULSE 73; RESP 18; TEMP 36.6; O2SAT 95; BMI 35.9
--- NOTE | 2025-07-13 08:30 | XR_ITS ---
WS: [id number] Exam: XR chest 1V portable [id number] Date/Time of Exam: 07/13/2025 8:45 AM Reason For Exam: dyspnea/cough Comparison 09/12/2015. Lungs are fully expanded and clear. Chronic interstitial changes. Normal cardiomediastinal silhouette. Permanent cardiac pacer seen over the LEFT chest. DJD of both shoulders. XR/XR chest 1V portable [id number] IMPRESSION: 1. No acute cardiopulmonary finding.
--- NOTE | 2025-07-13 08:36 | ECG_ITS ---
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 Measurements Intervals [place] Rate: 74 P: 0 TX: 0 QRS: 8 QRSD: 115 T: -51 QT: 464 QTc: 517 Interpretive Statements ATRIAL FIBRILLATION INTRAVENTRICULAR CONDUCTION DELAY [130+ ms QRS DURATION] ST DEPRESSION, CONSIDER ISCHEMIA Compared to ECG 05/25/2024 09:58:03 HEART RATE HAS DECREASED Electronically Signed On 07-14-2025 19:29:10 CDT by Pernell Milton M.D. [id number]
[2025-07-13 08:42] VITALS: O2SAT 98
--- NOTE | 2025-07-13 08:47 | W.ED.SOB ---
HPI - SOB/Dyspnea General: Chief Complaint: Shortness of Breath/Dyspnea Stated Complaint: SOB Time Seen by Provider: 07/13/25 08:32 History of Present Illness: HPI Narrative: 84-year-old female presents to the emergency room from local assisted living complaining of shortness of breath. She is not usually on any oxygen. She is satting 98% room air. She is having some wheezing. No productive cough no fever sweats or chills denies chest pain or abdominal pain. Associated symptoms: Deny abdominal pain, chest pain or fever(s) Related Data Home Medications ?Medication ?Instructions ?Recorded ?Confirmed cholecalciferol (vitamin D3) 25 1,000 unit PO DAILY@0800 05/01/20 07/13/25 mcg (1,000 unit) capsule multivitamin 1 tab PO DAILY 04/21/23 07/13/25 dorzolamide 22.3 mg-timolol 6.8 1 drp ophthalmic (eye) BID 05/05/24 07/13/25 mg/mL eye drops methenamine hippurate 1 gram tablet 1 g PO DAILY 05/05/24 07/13/25 acetaminophen 500 mg tablet 500 mg PO Q6H PRN Pain 07/13/25 07/13/25 amiodarone 200 mg tablet 200 mg PO DAILY 07/13/25 07/13/25 ascorbic acid (vitamin C) 500 mg 500 mg PO DAILY 07/13/25 07/13/25 tablet (Vitamin C) latanoprost 0.005 % eye drops 1 drp ophthalmic (eye) BEDTIME 07/13/25 07/13/25 losartan 25 mg tablet 25 mg PO DAILY 07/13/25 07/13/25 metoprolol succinate 50 mg 50 mg PO BID 07/13/25 07/13/25 tablet,extended release 24 hr nateglinide 120 mg tablet 120 mg PO TID 07/13/25 07/13/25 tizanidine 4 mg tablet 4 mg PO Q6H PRN Muscle Spasm 07/13/25 07/13/25 Previous Rx's ?Medication ?Instructions ?Recorded fenofibrate nanocrystallized 145 145 mg PO DAILY@0800 #90 tabs 09/14/24 mg tablet diltiazem HCl 240 mg 240 mg PO QAM #90 caps 12/23/24 capsule,extended release 24 hr (Cardizem CD) nystatin-triamcinolone 100,000 1 applic topical BID #60 grams 02/02/25 unit/g-0.1 % topical cream warfarin 1 mg tablet See Rx Instructions .Route 04/15/25 .COMPLEX #180 tabs levothyroxine 100 mcg tablet 100 mcg PO DAILY #90 tabs 06/12/25 furosemide 20 mg tablet (Lasix) 20 mg PO DAILY #14 tabs 06/25/25 Held on 07/13/25. Instructions: Resume on 07/17/25. hydrocodone 5 mg-acetaminophen 325 1 tab PO Q6H PRN pain #15 tabs 06/25/25 mg tablet albuterol sulfate 2.5 mg/3 mL 2.5 mg (3 mL) inhalation Q6H PRN 07/13/25 (0.083 %) solution for nebulization shortness of breath or wheezing #90 mL doxycycline hyclate 100 mg capsule 100 mg PO BID 10 days #20 caps 07/13/25 Allergies Allergy/AdvReac Type Severity Reaction Status Date / Time aspirin (From Excedrin Allergy Intermediate Hallucinati Verified 02/14/25 12:07 Migraine) ons caffeine (From Excedrin Allergy Intermediate Hallucinati Verified 02/14/25 12:07 Migraine) ons meperidine (From Demerol) Allergy Intermediate Unknown Verified 02/14/25 12:07 colesevelam (From WelChol) Allergy Mild ADR-Nausea Verified 02/14/25 12:07 indomethacin Allergy Mild ADR-Dizzine Verified 02/14/25 12:07 ss amlodipine Allergy Unknown Unknown Verified 02/14/25 12:07 fentanyl Allergy Unknown ADR-Vomitin Verified 02/14/25 12:07 g omega-3 acid ethyl esters Allergy Unknown Unknown Verified 02/14/25 12:07 (From Lovaza) Bnlvpwt-KHF-VaF Reductase Allergy Unknown ADR-Cramping Verified 02/14/25 12:07 Inhibitor (Vvejgdv-Osj-Pbm of the Reductase Inhibitor) Muscles Review of Systems Const: Denies: fever(s) or chills Card: Denies: chest pain Resp: Denies: dyspnea GI: Denies: abdominal pain : Denies: dysuria, urinary frequency or urinary urgency Musc: Denies: neck pain or back pain Skin/Breast: Denies: rash PFSH ED PFSH: Medical History Diabetes mellitus Hyperlipidemia CKD (chronic kidney disease) stage 4, GFR 15-29 ml/min Pacemaker HTN (hypertension) CHF (congestive heart failure) Coronary artery disease Surgical History S/P hemorrhoidectomy S/P hysterectomy S/P lens implant Family History Father Cancer Colon CA Heart disease Stroke Sister Cancer Breast CA Heart disease Hypertension Thyroid disease Diabetes Mother Heart disease Hypertension Thyroid disease Other CAD (coronary artery disease) Gout Social History Smoking and tobacco/nicotine status: never used tobacco/nicotine Physical Exam Const: GENERAL APPEARANCE: cooperative ORIENTATION/CONSCIOUSNESS: Yes awake HENMT: COMMON NORMALS: normocephalic, atraumatic and hearing grossly normal bilaterally HEAD & SCALP: normocephalic and atraumatic Resp: COMMON NORMALS: normal respiratory effort, No retractions, No use of accessory muscles and clear to auscultation bilaterally AUSCULTATION: clear to auscultation bilaterally Cardio: COMMON NORMALS: regular rate, regular rhythm and No murmurs present (Cardio) RATE: regular rate RHYTHM: regular rhythm GI: COMMON NORMALS: Soft to palpation and No hepatosplenomegaly present AUSCULTATION: Yes normoactive bowel sounds PALPATION: Yes Soft to palpation, No Tenderness to palpation present (GI), No Guarding due to palpation present (GI) and Yes No hepatosplenomegaly present Extremity: COMMON NORMALS: normal to inspection, capillary refill normal, no clubbing, cyanosis or edema, no calf tenderness and no pedal edema Skin: COMMON NORMALS: no rashes or lesions noted GENERAL SKIN EXAM: no rashes or lesions noted Course Vital Signs: Vital signs: Vital Signs Temperature 97.8 F 07/13/25 08:30 Pulse Rate 77 07/13/25 13:45 Respiratory Rate 18 07/13/25 09:23 Blood Pressure 146/69 07/13/25 13:45 Pulse Oximetry 93 07/13/25 13:45 Oxygen Delivery Me thod Room Air 07/13/25 12:00 Fraction of Inspir ed Oxygen 21 07/13/25 09:23 MDM - SOB/Dyspnea Medical Decision Making Mild acute kidney injury with her creatinine at 2.7. Will hold her Lasix. Potassium very slightly elevated at 5.1. EKG shows A-fib nonspecific ST changes troponins trending negative patient denies any chest pain at this time. No leukocytosis will put her on doxycycline albuterol to use as needed her breathing is much improved after nebulizers she is feeling well we will discharge her back to assisted living. She typically lives in assisted living was having increasing difficulty discussed with the patient and her family she may need to change her level of care setting. Should have repeat BMP in 5 to 7 days. Medical Records I reviewed the patient's medical records. Lab Data I reviewed the patient's lab results. 07/13/25 09:16 07/13/25 09:16 Labs/Radiology: Radiology Impressions Chest X-Ray 07/13/25 08:30 IMPRESSION: 1. No acute cardiopulmonary finding. Laboratory Results WBC 8.13 10^3/uL (3.29-11.43) 07/13/25 09:16 RBC 3.62 10^6/uL (3.85-5.65) L 07/13/25 09:16 Hgb 11.40 g/dL (11.27-16.99) 07/13/25 09:16 Hct 37.6 % (36-47) 07/13/25 09:16 MCV 103.9 fl (85-98) H 07/13/25 09:16 MCH 31.5 pg (27-33) 07/13/25 09:16 MCHC 30.3 g/dL (30-55) 07/13/25 09:16 RDW 14.0 % (12.1-15.1) 07/13/25 09:16 Plt Count 518 10^3/cmm (157-399) H 07/13/25 09:16 MPV 8.7 fL (7.4-10.4) 07/13/25 09:16 Neut % (Auto) 73.2 % 07/13/25 09:16 Lymph % (Auto) 12.8 % 07/13/25 09:16 [place] % (Auto) 9.5 % 07/13/25 09:16 Eos % (Auto) 2.7 % 07/13/25 09:16 Baso % (Auto) 1.1 % 07/13/25 09:16 Neut # (Auto) 5.95 10^3/uL (1.8-7.7) 07/13/25 09:16 Lymph # (Auto) 1.0 10^3/uL (0.8-4.8) 07/13/25 09:16 [place] # (Auto) 0.8 10^3/uL (0.2-0.9) 07/13/25 09:16 Eos # (Auto) 0.2 10^3/uL (0.0-0.8) 07/13/25 09:16 Baso # (Auto) 0.1 10^3/uL (0.0-0.1) 07/13/25 09:16 Nucleated RBC % (auto) 0 % 07/13/25 09:16 Nucleated RBCs # 0.0 /100WBC 07/13/25 09:16 Specimen Type Arterial 07/13/25 08:39 Sample Site Radial, left 07/13/25 08:39 ABG pH 7.38 (7.35-7.45) 07/13/25 08:39 ABG pCO2 42.5 mmHg (35-45) 07/13/25 08:39 ABG pO2 58.1 mmHg (80.0-100.0) L 07/13/25 08:39 ABG PO2/FiO2 Ratio 276 07/13/25 08:39 ABG HCO3 24.9 mmol/L (22-26) 07/13/25 08:39 ABG O2 Saturation 91.2 07/13/25 08:39 ABG Base Excess -0.4 mmol/L (-2.0-2.0) 07/13/25 08:39 Alex Test Pos 07/13/25 08:39 A-a O2 Gradient 4.9 mmHg (5-10) L 07/13/25 08:39 Hematocrit 35.9 % (37-47) L 07/13/25 08:39 Hgb O2 Saturation 89.2 % (95-100) L 07/13/25 08:39 Carboxyhemoglobin 1.0 %THgb (0.4-20.1) 07/13/25 08:39 Methemoglobin 1.1 % (0.4-1.5) 07/13/25 08:39 Total Hemoglobin 11.7 g/dL (12-16) L 07/13/25 08:39 Sodium 140.0 mmol/L (131-143) 07/13/25 08:39 Potassium 4.8 mmol/L (3.5-5.0) 07/13/25 08:39 Glucose 114.0 mg/dL (70-115) 07/13/25 08:39 Ionized Calcium 1.3 mmol/L (1.1-1.4) 07/13/25 08:39 O2 Delivery Device Room air 07/13/25 08:39 FiO2 21.0 % 07/13/25 08:39 Penetration Tester ID [place] 07/13/25 08:39 Sodium 138 mmol/L (136-145) 07/13/25 09:16 Potassium 5.2 mmol/L (3.5-5.1) H 07/13/25 09:16 Chloride 102 mmol/L (98-107) 07/13/25 09:16 Carbon Dioxide 24 mmol/L (22-29) 07/13/25 09:16 Anion Gap 17.2 (5-19) 07/13/25 09:16 BUN 43 mg/dL (8-23) H 07/13/25 09:16 Creatinine 2.7 mg/dL (0.5-0.9) H 07/13/25 09:16 GFR Calculation Not Reportable 07/13/25 09:16 Glucose 107 mg/dL (65-115) 07/13/25 09:16 Calculated Osmolality 297 mOsm/kg (285-295) H 07/13/25 09:16 Lactic Acid 0.9 mmol/L (0.5-2.2) 07/13/25 09:16 Calcium 9.0 mg/dL (8.5-10.5) 07/13/25 09:16 Total Bilirubin 0.3 mg/dL (0.15-1.2) 07/13/25 09:16 AST 34 U/L (0-32) H 07/13/25 09:16 ALT 22 U/L (0-33) 07/13/25 09:16 Alkaline Phosphatase 137 U/L (35-105) H 07/13/25 09:16 Troponin T Baseline 29 ng/L (0-10) H 07/13/25 09:16 Troponin T 120 Minute 26.26 ng/L (0-10) H 07/13/25 11:27 Delta Troponin T -2.74 ABS# (0-10) L 07/13/25 11:27 Total Protein 6.3 g/dL (6.6-8.7) L 07/13/25 09:16 Albumin 3.5 g/dL (3.5-5.2) 07/13/25 09:16 Globulin 2.8 g/dL (1.3-4.6) 07/13/25 09:16 Influenza A (PCR) Negative (Negative) 07/13/25 08:54 Influenza Type B (PCR) Negative (Negative) 07/13/25 08:54 RSV (PCR) Negative (Negative) 07/13/25 08:54 SARS-CoV-2 (PCR) Negative (Negative) 07/13/25 08:54 All radiology interpretation(s) finalized by discharge EKG Data EKG 1: I personally reviewed and interpreted this EKG as follows: Interpretation: EKG 07/13/2025 8:36 AM atrial fibrillation with a rate of 74 QTc [address] changes noted. EKG 05/25/2024 also at atrial fibrillation. EKG 2: Interpretation: EKG 07/13/2025 atrial fibrillation rate of 78 QTc 498 no significant change from EKG done earlier today. Discharge Plan Discharge Patient Disposition: Home Clinical Impression: CARLTON (acute kidney injury), Bronchitis Condition: Stable Prescriptions: New doxycycline hyclate 100 mg capsule 100 mg PO BID 10 Days Qty: 20 0RF albuterol sulfate 2.5 mg /3 mL (0.083 %) solution for nebulization 2.5 mg inhalation Q6H PRN (Reason: shortness of breath or wheezing) Qty: 90 0RF Held furosemide [Lasix] 20 mg tablet 20 mg PO DAILY Qty: 14 0RF Hold Instructions: Resume on 07/17/25. No Action cholecalciferol (vitamin D3) 25 mcg (1,000 unit) capsule 1,000 unit PO DAILY@0800 diltiazem HCl [Cardizem CD] 240 mg capsule,extended release 24hr 240 mg PO QAM Qty: 90 3RF nystatin-triamcinolone 100,000-0.1 unit/g-% cream 1 applic topical BID Qty: 60 1RF multivitamin Tablet 1 tab PO DAILY fenofibrate nanocrystallized 145 mg tablet 145 mg PO DAILY@0800 Qty: 90 3RF warfarin 1 mg tablet See Rx Instructions .ROUTE .COMPLEX Qty: 180 0RF Protocol: Dose Management Condition: Friday Dose/Route: 1 mg Instruction: 1 x 1 mg tablet Condition: Friday Dose/Route: 1 mg Instruction: 1 x 1 mg tablet Condition: Friday Dose/Route: 1 mg Instruction: 1 x 1 mg tablet Condition: Friday Dose/Route: 1 mg Instruction: 1 x 1 mg tablet Condition: Dose/Route: 1 mg Instruction: 1 x 1 mg tablet Condition: Friday Dose/Route: 0 mg Instruction: 0 tablets Condition: Friday Dose/Route: 1 mg Instruction: 1 x 1 mg tablet Protocol Text: Adjustment Start Date: Friday07/01/25 INR Value: 43.8 Seconds INR Date: 07/01/25 Recheck Date: 07/08/25 Dose Instruction: TAKE 2 TABLETS BY MOUTH EVERY DAY Rx Instructions: TAKE 2 TABLETS BY MOUTH 5 DAYS PER WEEK AND 1MG 2 DAYS ON AND FRI SUBJECT TO CHANGE levothyroxine 100 mcg tablet 100 mcg PO DAILY Qty: 90 1RF methenamine hippurate 1 gram tablet 1 g PO DAILY dorzolamide-timolol 22.3-6.8 mg/mL drops 1 drp ophthalmic (eye) BID latanoprost 0.005 % drops 1 drp ophthalmic (eye) BEDTIME acetaminophen 500 mg Tablet 500 mg PO Q6H PRN (Reason: Pain) ascorbic acid (vitamin C) [Vitamin C] 500 mg Tablet 500 mg PO DAILY losartan 25 mg Tablet 25 mg PO DAILY nateglinide 120 mg tablet 120 mg PO TID amiodarone 200 mg tablet 200 mg PO DAILY tizanidine 4 mg tablet 4 mg PO Q6H PRN (Reason: Muscle Spasm) metoprolol succinate 50 mg Tablet Extended Release 24 Hr 50 mg PO BID hydrocodone-acetaminophen 5-325 mg tablet 1 tab PO Q6H PRN (Reason: pain) Qty: 15 0RF Discharge Orders: Discharge ED (Routine); Ordered 07/13/25 Ordered By: Krzysztof Mcconnell Other Ambulatory Orders: DME: Nebulizer with Neb Kit (Order) Location: None Selected Ordered By: Krzysztof Mcconnell Referrals: Ángel Flores DO [Primary Care Provider, [facility]] Patient Instructions: Opioid Safety, Pain Management, Patient Portal & Prudencio Instructions Activity Restrictions/Additional Instructions: [facility]. It is very important that you follow up as instructed or that you return to the Emergency Department should you have concerns or if your condition changes or worsens in any way. Emergency department visits are focused on emergent conditions, in some cases you may require further evaluation on an outpatient basis. You are seen in the emergency room with complaints of wheezing and shortness of breath. Cardiac enzymes and EKG were negative. Chest x-ray did not show any acute infiltrates or fluid overload. You did have some mild worsening of your kidney function recommend holding Lasix for the next couple of days. Wheezing improved with breathing treatment. Will discharge home with albuterol as well as doxycycline for 10 days and follow-up with your primary care doctor (Please note that included in your discharge packet is information concerning opioid safety and pain management. 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
[2025-07-13 08:50] LABS: ABG PCO2 42.5 mmHg (35-45); ABG PH Result 7.38 (7.35-7.45); Alveolar-Arterial Oxygen Gradi 4.9 mmHg (5-10); Arterial Blood Gas Hematocrit 35.9 % (37-47); Blood Gas Allen Test Pos; Blood Gas Operator Identificat WALCI; Blood Gas Sample Site Radial, left; Blood Gas Sample Type Arterial; Carboxyhemoglobin 1.0 %THgb (0.4-20.1); Glucose Level-ABG 114.0 mg/dL (70-115); HCO3 ABG 24.9 mmol/L (22-26); Ionized Calcium Level - ABG 1.3 mmol/L (1.1-1.4); Methemoglobin 1.1 % (0.4-1.5); Oxygen Saturation ABG 91.2; PO2 ABG 58.1 mmHg (80.0-100.0); PO2 FiO2 Ratio Arterial Blood 276; Potassium Level - ABG 4.8 mmol/L (3.5-5.0); Sodium Level - ABG 140.0 mmol/L (131-143)
--- OUTSIDE RECORDS SUMMARY | 2025-07-13 08:50 | XMS_ITS | Data Portability ---
Author Organization [facility] Address [address] [address] Assessment No assessment recorded. Plan of Treatment [...] By Organization Details Last Modified Time 04/25/2025 [id number] New admit to [facility] . Admitted from home due to inability to care for self. Does follow with Dr. Lal at cardiology, he follows INR. Does have BLE edema, will schedule hctz 25mg at hs. Schedule labs. Mood good, adjusting to facility well. Not available 04/27/2025 12:30:21 06/23/2025 [id number] c/o back pain fo r 3-4 days. Will get xray and start baclofen. [email or web address] Not available 06/23/2025 15:11:51 Reason for Referral None Reported. Results Created Date Observation Date Name Description Value Unit Range Abnormal Flag Note LastModifiedBy Organization Detail LastModifiedTime 06/24/2006/23/2025 XR, lumbo sacra l spine , 2 or 3 view No observ ation record ed. [email or web address] [address], [place], [address], 06/27/2025 11:57:11 Result Notes None recorded. Problems Name Problem SNOMED Code Status Onset Date Resolution Date Notes Provider Name and Address Organization Details Recorded Time Hyperglyce rasta due to type 2 diabetes mellitus 3445209743489 09 Active 2024 [facility] 12:27:33 Hyperlipid emia 83950599 Active 2024 PRUDENCE [facility] 5 12:27:34 Chronic kidney disease stage 4 023891747 Active 2024 PRUDENCE [facility] 5 12:27:35 Cardiac pacemaker in situ 014817074 Active 2024 [facility]UDENCECHINMAY [facility] 5 12:27:36 Essential hypertensi on 60846536 Active 2024 PRUDENCE [facility] 5 12:27:38 Congestive heart failure 36563700 Active 2024 PRUDENCE [facility] 5 12:27:39 Coronary arterioscl erosis 53269989 Active 2024 [facility]UDENCE [facility] 5 12:27:40 Chronic atrial fibrillati on 208105284 Active 2024 PRUDENCE [facility] 5 12:27:42 Problem Notes None recorded. [...] ICD10 Code Diagnosis IMO Codes Diagnosis Note [id number] Jose L Valentin DO [facility] [address] [place] [address] 04/27/2025 10:48:24 05/02/2025 16:16:19 Hyperglycemia due to type 2 diabetes mellitus 7672090476 11729 E11.65 33453726 Hyperlipidemia 62037855 E78.49 3522600 Chronic ki dney disease stage 4 896908962 N18.4 102416 Cardiac pa cemaker in situ 026646340 Z95.0 424689 Essential hypertension 35057931 I10 53220 Congestive heart failure 22572236 I50.9 6076958202 Coronary arteriosclerosis 08791811 I25.10 07247785 Chronic at rial fibrillation 268396136 I48.20 910901 [id number] Jose L Valentin DO [facility]) [address] [place] [address] 06/23/2025 14:44:01 06/28/2025 14:13:40 Hyperglycemia due to type 2 diabetes mellitus 5475694959 04616 E11.65 86148182 Congestive heart failure 55876323 I50.9 5809302962 Chronic at rial fibrillation 821562852 I48.20 541771 Chronic ki dney disease stage 4 846078948 N18.4 600120 Cardiac pa cemaker in situ 178487661 Z95.0 060652 Coronary arteriosclerosis 36239918 I25.10 22960194 Hyperlipidemia 30497770 E78.49 5710410 Essential hypertension 03987893 I10 10833 Health Concerns Section Related Observation LastModified by Organization Detai ls LastModified Time None Recorded Concern Status LastModified by Organization Details LastModified Time None Recorded Advance Directives Directive None Recorded Payers Insurance Date Sequence Insurance Name Policy Number Policy Piper Covered Member ID Piper Member ID Guarantor Name 05/18/2025 2 UNSPECIFIED REMIT PAYOR Ольга Lundberg Histamy 06/23/2025 1 [place]IC[place] Clejean paul Lundberg Hise [id number] Cledith N Hise 06/23/2025 [place] - [facility] (MEDICARE) Clejean paul Lundberg Hise [id number] Cledith N Hise 04/27/2025 1 *SELF PAY* Cl amber Hickey 06/03/2025 2 UNSPECIFIED REMIT PAYOR Ольга Hickey Notes Date Note Type Note Provider Name and Address Organization Details Recorded Time 04/25/2025 text/html DiabetesReported by PatientHPIFor duration, patient reportschronic. For control, patient reportsusually well controlled. For compliance, patient reportscompliant with medications.ROS as noted in the HPI new admit to [facility], unable to care for self at home. Jose L Valentin DO [address] [place] [address], [phone], [facility] 05/01/2025 15:19:04 06/23/2025 text/html DiabetesReported by PatientHPIFor duration, patient reportschronic. For control, patient reportsusually well controlled. For compliance, patient reportscompliant with medications.ROS as noted in the HPI c/o back pain for the last 3-4 days. Jose L Valentin DO [address] [place] [address], [address], [facility] 06/26/2025 17:03:41 OBGyn Episode No OBEpisode recorded.
--- OUTSIDE RECORDS SUMMARY | 2025-07-13 08:50 | XMS_ITS ---
Author Organization Unknown Vital Signs BpStanding BpSitting BpSupine Date Temperature HeartRate Weight Hei ght Spo2 Respiration Bmi HeadCircumference FieldCount TimeRecorded NeckCircumferen ce WaistCircumference Pulse Custom 06/23 00:00 :00 00:00 04/25 00:00 :00 00:00
[2025-07-13 09:23] VITALS: PULSE 77; RESP 18; O2SAT 95
[2025-07-13 09:29] LABS: Hematocrit 37.6 % (36-47); Hemoglobin 11.40 g/dL (11.27-16.99); Mean Corpuscular HGB Conc 30.3 g/dL (30-55); Mean Corpuscular Hemoglobin 31.5 pg (27-33); Mean Corpuscular Volume 103.9 fl (85-98); Nucleated Red Blood Cells % 0 %; Platelet Count 518 10^3/cmm (157-399); Red Blood Count 3.62 10^6/uL (3.85-5.65); White Blood Count 8.13 10^3/uL (3.29-11.43)
[2025-07-13 09:33] LABS: Respiratory Syncytial Virus Ce NEGATIVE (Negative); SARS-CoV-2 PCR NEGATIVE (Negative)
[2025-07-13 09:47] LABS: Troponin(5th) Baseline 29 ng/L (0-10)
[2025-07-13 09:48] LABS: Lactic Sepsis W/Reflex 0.9 mmol/L (0.5-2.2)
[2025-07-13 09:52] LABS: Alanine Aminotransferase 22 U/L (0-33); Albumin Level 3.5 g/dL (3.5-5.2); Alkaline Phosphatase 137 U/L (35-105); Anion Gap 17.2 (5-19); Aspartate Amino Transferase 34 U/L (0-32); Blood Urea Nitrogen 43 mg/dL (8-23); Calcium 9.0 mg/dL (8.5-10.5); Carbon Dioxide 24 mmol/L (22-29); Chloride 102 mmol/L (98-107); Creatinine Clr Calc Pharmacy 17.3212; Globulin 2.8 g/dL (1.3-4.6); Glucose 107 mg/dL (65-115); Osmolality Calculated 297 mOsm/kg (285-295); Potassium 5.2 mmol/L (3.5-5.1); Sodium 138 mmol/L (136-145); Total Protein 6.3 g/dL (6.6-8.7)
[2025-07-13 10:49] VITALS: BP 123/77; PULSE 72; O2SAT 95
--- NOTE | 2025-07-13 10:49 | PC.PHAR ---
Pt is now a resident at [facility] 07/13/25
--- NOTE | 2025-07-13 10:52 | ECG_ITS ---
[facility] Date: 2025-07-13 Pat Name: Ольга Hickey Department: Room: Gender: Female Dinkey Operator: : 1940 Requested By: Krzysztof Pinon Order Number: [id number] Reading MD: Measurements Intervals [place] Rate: 78 P: 0 MN: 0 QRS: 10 QRSD: 126 T: -71 QT: 435 QTc: 498 Interpretive Statements UNCERTAIN REGULAR RHYTHM MODERATE INTRAVENTRICULAR CONDUCTION DELAY [110+ ms QRS DURATION] ST DEVIATION AND MODERATE T-WAVE ABNORMALITY, CONSIDER ANTEROLATERAL ISCHEMIA [-0.1+ mV T-WAVE IN V3-V6] ST DEVIATION AND MODERATE T-WAVE ABNORMALITY, CONSIDER INFERIOR ISCHEMIA [-0.1+ mV T-WAVE IN II/aVF] [email or web address]
--- NOTE | 2025-07-13 11:09 | PC.PHAR ---
Addendum entered by Floresita Alonzo 07/13/25 12:31: Cephalexin dc'd 07/12/25 Tizanidine is still 4mg Losartan is 25mg Metoprolol changed to Succinate er 50mg bid Addendum entered by Floresita Alonzo 07/13/25 11:53: 3 calls to fpc with no results. Questions pending Cephalexin 500mg tid-dc'd? Tizanidine 4mg q6h prn-changed to 2mg? Losartan 50mg daily-changed to 25mg? Metoprolol tart. 50mg bid-changed to Succ. er 50mg bid (change in delivery and question er being bid) Original Note: Questions on several medication changes-left message for the nurse to call me back for verification.07/13/25 11:10am
[2025-07-13 12:00] VITALS: BP 145/75; PULSE 74; O2SAT 93
[2025-07-13 12:23] LABS: Troponin 5 2HR 26.26 ng/L (0-10)
[2025-07-13 12:33] LABS: Troponin 5 2HR Delta -2.74 ABS# (0-10)
[2025-07-13 13:45] VITALS: BP 146/69; PULSE 77; O2SAT 93
== END 2025-07-13 13:47 | disposition home or self-care (01) ==
PROVIDERS: Emergency Provider Family Medicine; PCP Family Medicine
DX: N17.9 Acute kidney failure, unspecified (principal); J40 Bronchitis, not specified as acute or chronic; Z79.01 Long term (current) use of anticoagulants; Z11.52 Encounter for screening for COVID-19; Z95.0 Presence of cardiac pacemaker; I25.10 Atherosclerotic heart disease of native coronary artery without angina pectoris; E11.22 Type 2 diabetes mellitus with diabetic chronic kidney disease; I13.0 Hypertensive heart and chronic kidney disease with heart failure and stage 1 through stage 4 chronic kidney disease, or unspecified chronic kidney disease; N18.9 Chronic kidney disease, unspecified; I50.9 Heart failure, unspecified
CPT/HCPCS: 36415; 36600; 71045; 80051; 80053; 82330; 82805; 83605; 84484; 85025; 87040; 87070; 87205; 87637; 93005; 94640; 99285; J9999

== ENCOUNTER → 2025-07-15 08:55 | Outpatient (BNVA) | payer MEDICARE, OTHER, SELFPAY | PROVIDERS: PCP Family Medicine; Visit Provider Internal Medicine Cardiovascular Disease | DX: I48.91 Unspecified atrial fibrillation (principal); Z79.01 Long term (current) use of anticoagulants; I13.0 Hypertensive heart and chronic kidney disease with heart failure and stage 1 through stage 4 chronic kidney disease, or unspecified chronic kidney disease; N18.4 Chronic kidney disease, stage 4 (severe); I50.9 Heart failure, unspecified; L03.90 Cellulitis, unspecified; W19.XXXA Unspecified fall, initial encounter; Z95.0 Presence of cardiac pacemaker; E78.5 Hyperlipidemia, unspecified; I48.11 Longstanding persistent atrial fibrillation | CPT/HCPCS: 99214 ==

== ENCOUNTER 2025-07-19 11:19 | Emergency (ER) | payer MEDICARE, OTHER, SELFPAY ==
[2025-07-19 11:19] VITALS: BP 135/71; PULSE 75; RESP 18; TEMP 36.9; O2SAT 98; BMI 33.7
--- NOTE | 2025-07-19 11:23 | XRR_ITS ---
PROCEDURE INFORMATION: Exam: XR Chest Exam date and time: 07/19/2025 11:28 AM Age: 84 years old Clinical indication: Shortness of breath; Additional info: SOB TECHNIQUE: Imaging protocol: Radiologic exam of the chest. Views: 1 view. COMPARISON: CR XR chest 1V portable [id number] 07/13/2025 8:39 AM FINDINGS: Tubes, catheters and devices: Stable left subclavian pacer. Lungs: Low lung volumes. No new airspace disease. Pleural spaces: Unremarkable. No pleural effusion. No pneumothorax. Heart/Mediastinum: Stable cardiomediastinal silhouette. Vasculature: Atherosclerotic aortic calcifications. Bones/joints: Unremarkable. XR/XR chest 1V portable [id number] IMPRESSION: No acute cardiopulmonary findings.
[2025-07-19 11:31] LABS: Hematocrit 38.7 % (36-47); Hemoglobin 11.50 g/dL (11.27-16.99); Mean Corpuscular HGB Conc 29.7 g/dL (30-55); Mean Corpuscular Hemoglobin 31.4 pg (27-33); Mean Corpuscular Volume 105.7 fl (85-98); Nucleated Red Blood Cells % 0 %; Platelet Count 531 10^3/cmm (157-399); Red Blood Count 3.66 10^6/uL (3.85-5.65); White Blood Count 10.82 10^3/uL (3.29-11.43)
--- NOTE | 2025-07-19 11:38 | W.ED.SOB ---
HPI - SOB/Dyspnea General: Chief Complaint: Shortness of Breath/Dyspnea Stated Complaint: abnormal labs, SOB Time Seen by Provider: 07/19/25 11:23 Source: patient and EMS Mode of arrival: EMS Limitations: no limitations History of Present Illness: HPI Narrative: 84-year-old female who states that she has a history of A-fib along with CHF and recently been admitted to the hospital here 3 weeks ago for pneumonia. States over the last 3 days she has had some increasing shortness of breath has been requiring 2 L of oxygen. Patient is on Coumadin for her A-fib states her INR was 7.5. She had a slight cough she denies any fever she denies any chest pain she is in no distress here currently. Related Data Home Medications ?Medication ?Instructions ?Recorded ?Confirmed cholecalciferol (vitamin D3) 25 1,000 unit PO DAILY@0800 05/01/20 07/15/25 mcg (1,000 unit) capsule multivitamin 1 tab PO DAILY 04/21/23 07/15/25 dorzolamide 22.3 mg-timolol 6.8 1 drp ophthalmic (eye) BID 05/05/24 07/15/25 mg/mL eye drops methenamine hippurate 1 gram tablet 1 g PO DAILY 05/05/24 07/15/25 acetaminophen 500 mg tablet 500 mg PO Q6H PRN Pain 07/13/25 07/15/25 amiodarone 200 mg tablet 200 mg PO DAILY 07/13/25 07/15/25 ascorbic acid (vitamin C) 500 mg 500 mg PO DAILY 07/13/25 07/15/25 tablet (Vitamin C) latanoprost 0.005 % eye drops 1 drp ophthalmic (eye) BEDTIME 07/13/25 07/15/25 metoprolol succinate 50 mg 50 mg PO BID 07/13/25 07/15/25 tablet,extended release 24 hr nateglinide 120 mg tablet 120 mg PO TID 07/13/25 07/15/25 tizanidine 4 mg tablet 4 mg PO Q6H PRN Muscle Spasm 07/13/25 07/15/25 Previous Rx's ?Medication ?Instructions ?Recorded fenofibrate nanocrystallized 145 145 mg PO DAILY@0800 #90 tabs 09/14/24 mg tablet diltiazem HCl 240 mg 240 mg PO QAM #90 caps 12/23/24 capsule,extended release 24 hr (Cardizem CD) nystatin-triamcinolone 100,000 1 applic topical BID #60 grams 02/02/25 unit/g-0.1 % topical cream warfarin 1 mg tablet See Rx Instructions .Route 04/15/25 .COMPLEX #180 tabs levothyroxine 100 mcg tablet 100 mcg PO DAILY #90 tabs 06/12/25 furosemide 20 mg tablet (Lasix) 20 mg PO DAILY #14 tabs 06/25/25 albuterol sulfate 2.5 mg/3 mL 2.5 mg (3 mL) inhalation Q6H PRN 07/13/25 (0.083 %) solution for nebulization shortness of breath or wheezing #90 mL cephalexin 500 mg capsule 500 mg PO QID #20 caps 07/15/25 Allergies Allergy/AdvReac Type Severity Reaction Status Date / Time aspirin (From Excedrin Allergy Intermediate Hallucinati Verified 07/15/25 09:01 Migraine) ons caffeine (From Excedrin Allergy Intermediate Hallucinati Verified 07/15/25 09:01 Migraine) ons meperidine (From Demerol) Allergy Intermediate Unknown Verified 07/15/25 09:01 colesevelam (From WelChol) Allergy Mild ADR-Nausea Verified 07/15/25 09:01 indomethacin Allergy Mild ADR-Dizzine Verified 07/15/25 09:01 ss amlodipine Allergy Unknown Unknown Verified 07/15/25 09:01 fentanyl Allergy Unknown ADR-Vomitin Verified 07/15/25 09:01 g omega-3 acid ethyl esters Allergy Unknown Unknown Verified 07/15/25 09:01 (From Lovaza) Afbkpyu-MCE-PoB Reductase Allergy Unknown ADR-Cramping Verified 07/15/25 09:01 Inhibitor (Rrezhmp-Zux-Ndu of the Reductase Inhibitor) Muscles Review of Systems Resp: Reports: dyspnea PFSH ED PFSH: Medical History Diabetes mellitus Hyperlipidemia CKD (chronic kidney disease) stage 4, GFR 15-29 ml/min Pacemaker HTN (hypertension) CHF (congestive heart failure) Coronary artery disease Surgical History S/P hemorrhoidectomy S/P hysterectomy S/P lens implant Family History Father Cancer Colon CA Heart disease Stroke Sister Cancer Breast CA Heart disease Hypertension Thyroid disease Diabetes Mother Heart disease Hypertension Thyroid disease Other CAD (coronary artery disease) Gout Social History Smoking and tobacco/nicotine status: never used tobacco/nicotine Physical Exam Const: COMMON NORMALS: patient oriented x3 HENMT: COMMON NORMALS: normocephalic and atraumatic HEAD & SCALP: normocephalic and atraumatic Eye: COMMON NORMALS: Equal, round and reactive pupils present and EOMs intact bilaterally PUPIL: Yes Equal, round and reactive pupils present Neck/C-Spine: COMMON NORMALS: full ROM and supple Chest: COMMONS NORMALS: normal inspection of the chest and normal palpation of entire chest wall Resp: COMMON NORMALS: normal respiratory effort, No retractions, No use of accessory muscles and clear to auscultation bilaterally AUSCULTATION: clear to auscultation bilaterally Cardio: COMMON NORMALS: regular rate, regular rhythm and No murmurs present (Cardio) RATE: regular rate RHYTHM: regular rhythm GI: COMMON NORMALS: Normal to inspection, nondistended, normoactive bowel sounds present, Soft to palpation, non-tender and no masses PALPATION: Yes Soft to palpation Extremity: COMMON NORMALS: normal to inspection and full ROM Neuro: COMMON NORMALS: patient oriented x3, moves all extremities and no focal motor deficits Psych: COMMON NORMALS: mental status grossly normal, Normal thought process present and cooperative THOUGHT PROCESS: Normal thought process present Skin: COMMON NORMALS: no rashes or lesions noted and no wounds GENERAL SKIN EXAM: no rashes or lesions noted Course Vital Signs: Vital signs: Vital Signs Temperature 98.4 F 07/19/25 11:19 Pulse Rate 75 07/19/25 11:19 Respiratory Rate 18 07/19/25 11:19 Blood Pressure 135/71 07/19/25 11:19 Pulse Oximetry 98 07/19/25 11:19 Oxygen Delivery Me thod Room Air 07/19/25 11:19 MDM - SOB/Dyspnea Medical Decision Making Patient presents here from alf with shortness of breath. Differential includes pneumonia, CHF exacerbation, pulmonary emboli, pneumothorax. Patient's chest x-ray shows no signs of pulmonary edema or pneumothorax or pneumonia. She is feeling improved here after Lasix. She has no signs of severe CHF exacerbation. Patient has no signs of pulm emboli here. EKG showed normal sinus rhythm heart rate [address] elevation QRS 154 QTc 422. She has no signs of acute coronary syndrome. Do you have her IV dose of Lasix here I did go over the labs EKG and imaging with her I feel she is stable for discharge back to alf she has a follow-up her PCP return if worsening she understands agrees to plan. Medical Records I reviewed the patient's medical records. Lab Data I reviewed the patient's lab results. 07/19/25 11:23 07/19/25 11:23 Labs/Radiology: Radiology Impressions Chest X-Ray 07/19/25 11:23 IMPRESSION: No acute cardiopulmonary findings. Laboratory Results WBC 10.82 10^3/uL (3.29-11.43) 07/19/25 11:23 RBC 3.66 10^6/uL (3.85-5.65) L 07/19/25 11:23 Hgb 11.50 g/dL (11.27-16.99) 07/19/25 11:23 Hct 38.7 % (36-47) 07/19/25 11:23 MCV 105.7 fl (85-98) H 07/19/25 11:23 MCH 31.4 pg (27-33) 07/19/25 11:23 MCHC 29.7 g/dL (30-55) L 07/19/25 11:23 RDW 14.3 % (12.1-15.1) 07/19/25 11:23 Plt Count 531 10^3/cmm (157-399) H 07/19/25 11:23 MPV 9.2 fL (7.4-10.4) 07/19/25 11:23 Neut % (Auto) 81.3 % 07/19/25 11:23 Lymph % (Auto) 9.4 % 07/19/25 11:23 [place] % (Auto) 6.2 % 07/19/25 11:23 Eos % (Auto) 2.0 % 07/19/25 11:23 Baso % (Auto) 0.6 % 07/19/25 11:23 Neut # (Auto) 8.79 10^3/uL (1.8-7.7) H 07/19/25 11:23 Lymph # (Auto) 1.0 10^3/uL (0.8-4.8) 07/19/25 11:23 [place] # (Auto) 0.7 10^3/uL (0.2-0.9) 07/19/25 11:23 Eos # (Auto) 0.2 10^3/uL (0.0-0.8) 07/19/25 11:23 Baso # (Auto) 0.1 10^3/uL (0.0-0.1) 07/19/25 11:23 Nucleated RBC % (auto) 0 % 07/19/25 11:23 Nucleated RBCs # 0.0 /100WBC 07/19/25 11:23 PT 42.90 SECONDS (12.1-14.9) H 07/19/25 11:23 INR 4.23 (0.8-1.2) H 07/19/25 11:23 Sodium 142 mmol/L (136-145) 07/19/25 11:23 Potassium 5.4 mmol/L (3.5-5.1) H 07/19/25 11:23 Chloride 106 mmol/L (98-107) 07/19/25 11:23 Carbon Dioxide 26 mmol/L (22-29) 07/19/25 11:23 Anion Gap 15.4 (5-19) 07/19/25 11:23 BUN 55 mg/dL (8-23) H 07/19/25 11:23 Creatinine 3.1 mg/dL (0.5-0.9) H 07/19/25 11:23 GFR Calculation Not Reportable 07/19/25 11:23 Glucose 181 mg/dL (65-115) H 07/19/25 11:23 Calculated Osmolality 314 mOsm/kg (285-295) H 07/19/25 11:23 Calcium 9.4 mg/dL (8.5-10.5) 07/19/25 11:23 Total Bilirubin 0.4 mg/dL (0.15-1.2) 07/19/25 11:23 AST 47 U/L (0-32) H 07/19/25 11:23 ALT 31 U/L (0-33) 07/19/25 11:23 Alkaline Phosphatase 132 U/L (35-105) H 07/19/25 11:23 NT-Pro-B Natriuret Pep 9438 pg/mL (0-450) H 07/19/25 11:23 Total Protein 6.5 g/dL (6.6-8.7) L 07/19/25 11:23 Albumin 3.6 g/dL (3.5-5.2) 07/19/25 11:23 Globulin 2.9 g/dL (1.3-4.6) 07/19/25 11:23 All radiology interpretation(s) finalized by discharge EKG Data EKG 1: I personally reviewed and interpreted this EKG as follows: EKG Interpretation Date: 07/19/25 EKG interpretation time: 13:08 Interpretation: nsr hr [address] elevation qrs 154 qtc 422 Discharge Plan Discharge Patient Disposition: Home Clinical Impression: Shortness of breath CHF (congestive heart failure) Qualifiers: Heart failure type: diastolic Heart failure chronicity: chronic Qualified Code(s): I50.32 - Chronic diastolic (congestive) heart failure Condition: Stable Prescriptions: No Action cholecalciferol (vitamin D3) 25 mcg (1,000 unit) capsule 1,000 unit PO DAILY@0800 diltiazem HCl [Cardizem CD] 240 mg capsule,extended release 24hr 240 mg PO QAM Qty: 90 3RF cephalexin 500 mg capsule 500 mg PO QID Qty: 20 0RF Rx Instructions: 500 Mg QID for 5 days nystatin-triamcinolone 100,000-0.1 unit/g-% cream 1 applic topical BID Qty: 60 1RF multivitamin Tablet 1 tab PO DAILY fenofibrate nanocrystallized 145 mg tablet 145 mg PO DAILY@0800 Qty: 90 3RF warfarin 1 mg tablet See Rx Instructions .ROUTE .COMPLEX Qty: 180 0RF Protocol: Dose Management Condition: Friday Dose/Route: 1 mg Instruction: 1 x 1 mg tablet Condition: Friday Dose/Route: 1 mg Instruction: 1 x 1 mg tablet Condition: Friday Dose/Route: 1 mg Instruction: 1 x 1 mg tablet Condition: Friday Dose/Route: 1 mg Instruction: 1 x 1 mg tablet Condition: Dose/Route: 1 mg Instruction: 1 x 1 mg tablet Condition: Friday Dose/Route: 0 mg Instruction: 0 tablets Condition: Friday Dose/Route: 1 mg Instruction: 1 x 1 mg tablet Protocol Text: Adjustment Start Date: Friday07/01/25 INR Value: 43.8 Seconds INR Date: 07/01/25 Recheck Date: 07/08/25 Dose Instruction: TAKE 2 TABLETS BY MOUTH EVERY DAY Rx Instructions: TAKE 2 TABLETS BY MOUTH 5 DAYS PER WEEK AND 1MG 2 DAYS ON AND FRI SUBJECT TO CHANGE levothyroxine 100 mcg tablet 100 mcg PO DAILY Qty: 90 1RF methenamine hippurate 1 gram tablet 1 g PO DAILY dorzolamide-timolol 22.3-6.8 mg/mL drops 1 drp ophthalmic (eye) BID latanoprost 0.005 % drops 1 drp ophthalmic (eye) BEDTIME acetaminophen 500 mg Tablet 500 mg PO Q6H PRN (Reason: Pain) ascorbic acid (vitamin C) [Vitamin C] 500 mg Tablet 500 mg PO DAILY nateglinide 120 mg tablet 120 mg PO TID amiodarone 200 mg tablet 200 mg PO DAILY tizanidine 4 mg tablet 4 mg PO Q6H PRN (Reason: Muscle Spasm) metoprolol succinate 50 mg Tablet Extended Release 24 Hr 50 mg PO BID albuterol sulfate 2.5 mg /3 mL (0.083 %) solution for nebulization 2.5 mg inhalation Q6H PRN (Reason: shortness of breath or wheezing) Qty: 90 0RF furosemide [Lasix] 20 mg tablet 20 mg PO DAILY Qty: 14 0RF Discharge Orders: Discharge ED (Routine); Ordered 07/19/25 Ordered By: Freda Gamboa Referrals: Ángel Flores DO [Primary Care Provider, Family Practice] - 4-7 days Discharge Diet: Advance as tolerated Discharge Activity: Resume usual activity Patient Instructions: Heart Failure (ED) Print Language: Slovenian Coding Level of Care Code ED Registered Route Associate for Mirella Rose
[2025-07-19 11:41] LABS: INR 4.23 (0.8-1.2); Prothrombin Time 42.90 SECONDS (12.1-14.9)
[2025-07-19 12:13] LABS: Alanine Aminotransferase 31 U/L (0-33); Albumin Level 3.6 g/dL (3.5-5.2); Alkaline Phosphatase 132 U/L (35-105); Aspartate Amino Transferase 47 U/L (0-32); Blood Urea Nitrogen 55 mg/dL (8-23); Calcium 9.4 mg/dL (8.5-10.5); Carbon Dioxide 26 mmol/L (22-29); Creatinine Clr Calc Pharmacy 14.5909; Globulin 2.9 g/dL (1.3-4.6); Glucose 181 mg/dL (65-115); NT Pro B Type Natriuretic Pept 9438 pg/mL (0-450); Total Protein 6.5 g/dL (6.6-8.7)
[2025-07-19 12:44] LABS: Anion Gap 15.4 (5-19); Potassium 5.4 mmol/L (3.5-5.1)
[2025-07-19 12:45] LABS: Chloride 106 mmol/L (98-107); Osmolality Calculated 314 mOsm/kg (285-295); Sodium 142 mmol/L (136-145)
--- NOTE | 2025-07-19 12:48 | ECG_ITS ---
[facility] Test Date: 2025-07-19 Pat Name: Ольга Hickey Department: Room: Gender: Female Skein [employer]her: : 1940 Requested By: Freda Gamboa Order Number: [id number] Maureen MD: Niraj Dominguez M.D. 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 [email or web address]
[2025-07-19] MEDS: FUROsemide 10 mg/mL SDV 10mL 60 MG IVP (12:52)
[2025-07-19 12:57] VITALS: BP 130/57; PULSE 73; O2SAT 100
[2025-07-19 13:26] VITALS: BP 144/72; PULSE 78; O2SAT 98
== END 2025-07-19 13:26 | disposition home or self-care (01) ==
PROVIDERS: Emergency Provider Emergency Medicine; PCP Family Medicine
DX: R06.02 Shortness of breath (principal); E11.22 Type 2 diabetes mellitus with diabetic chronic kidney disease; I13.0 Hypertensive heart and chronic kidney disease with heart failure and stage 1 through stage 4 chronic kidney disease, or unspecified chronic kidney disease; N18.4 Chronic kidney disease, stage 4 (severe); I50.32 Chronic diastolic (congestive) heart failure; I25.10 Atherosclerotic heart disease of native coronary artery without angina pectoris; Z95.0 Presence of cardiac pacemaker
CPT/HCPCS: 71045; 80053; 83880; 85025; 85610; 93005; 96374; 99285; J1938

== ENCOUNTER 2025-07-19 13:34 | Outpatient (CLI) | payer MEDICARE, OTHER, SELFPAY ==
[2025-07-19 14:55] LABS: Calcium 9.5 mg/dL (8.5-10.5)
[2025-07-19 14:59] LABS: Creatinine Urine, Random 44 mg/dL (28-217); Microalbum Creatinine Ratio Ur 23 mg/dL (0-20)
== END 2025-07-19 13:35 | disposition home or self-care (01) ==
LOC: LAB 13:39
PROVIDERS: PCP Family Medicine; Visit Provider Registered Nurse
DX: N18.32 Chronic kidney disease, stage 3b (principal)
CPT/HCPCS: 82044; 82306; 82310; 83970